=== PATIENT | female | born 1965 | race Caucasian/White ===

== ENCOUNTER 2018-07-27 00:42 | Outpatient (CLI) | payer OTHER, SELFPAY ==
--- NOTE | 2018-07-27 09:36 | DI.MAMMO_ITS ---
SYMPTOMS/DIAGNOSIS: SCREENING, Z12.31 BILATERAL SCREENING MAMMOGRAM: Mammograms were interpreted according to the usual protocol including computer analysis with CAD system, tomosynthesis and C view imaging. Comparison is made with 2013 through 2016. The breasts are composed of scattered fibroglandular densities, breast density category B. No suspicious masses or suspicious microcalcifications are seen. There has been no significant change. IMPRESSION: Category 1, negative mammogram. Yearly screening mammography is recommended. [facility] ASSESSMENT OF FINDINGS: Negative. Category 1. Patient will receive a letter notifying them of these results. BI-RADS category B. There are scattered areas of fibroglandular density.
== END 2018-07-27 01:02 ==
PROVIDERS: PCP Nurse Practitioner; Visit Provider Nurse Practitioner
DX: Z12.31 Encounter for screening mammogram for malignant neoplasm of breast (principal)
CPT/HCPCS: 77063; 77067

== ENCOUNTER 2019-02-27 16:49 | Observation (INO) | payer OTHER, SELFPAY ==
--- NOTE | 2019-02-27 16:54 | NUR.NOTE ---
Nursing Note: pt states that the world has been spiining and i feel like im going to vomit since tuesday RN notes significant nystagmus in eyes
[2019-02-27 16:57] VITALS: BP 166/79; PULSE 80; RESP 16; TEMP 36.7; O2SAT 95
--- NOTE | 2019-02-27 17:19 | W.ED.GENAD ---
Discharge Plan Disposition Patient Disposition: [facility] INPATIENT Condition: Stable Discharge Details Chief Complaint: Dizzy/Sync Clinical Impression: Vertigo, Sinusitis Admit Date/Time: 02/27/19 23:11 Admit Provider: Lalito Rodriguez Attending Provider: Lalito Rodriguez Primary Care Provider: Jessy Hathaway ED Provider: Edda Martinez Discharge Data Discharge Date/Time-TO BE ENTERED AT DEPARTURE: 02/28/19 00:47 Medical Decision Making <MEGHANN Rowland - Last Filed: 03/04/19 22:10> Patient is a 53-year-old female, accompanied by significant other, with chief complaint of headache, dizziness and sinus pain. She reports the dizziness feels like the room was spinning and began approximately 5 days ago. She reports the abrupt onset causing her to almost fall. Symptoms have been persistent since that time. She reports that over the weekend she was laying supine throughout the weekend. Has had a diminished appetite and diminished p.o. intake. Today, she began having nausea and vomiting. He denies any fevers or chills. She does have a history of migraines reports that she is never experienced this dizziness historically. She denies any visual change. No change in her hearing. Denies any neck pain. No rash. No chest pain or shortness of breath. Patient has a history of anxiety, diabetes, GERD, hypertension, hyperlipidemia, migraine, psoriasis. On exam, the patient appears uncomfortable. She is actively vomiting when I came into the room. She does appear slightly dehydrated. She is hypertensive with a blood pressure 166/79. She has no nuchal rigidity. No rash. Pupils are equal round and reactive. [place] reveals some mild nystagmus on the left. No symptoms on the right. Plan for hydration, laboratory evaluation. This patient is having a posterior headache with vertigo, will obtain CT. Horizontal nystagmus is noted on exam. Neurologic exam is otherwise intact. Exam reviewed by Dr. Beltran. Patient is in normal sinus rhythm with a rate of 81. She denies no acute ischemic changes at this time. FINDINGS: Brain: Unremarkable. No intracranial hemorrhage. Unremarkable white matter. No mass effect. Ventricles: Unremarkable. No ventriculomegaly. Bones/joints: Unremarkable. No acute fracture. Sinuses: Left maxillary sinus disease. Mastoid air cells: Visualized mastoid air cells are well aerated. Soft tissues: Unremarkable. IMPRESSION: No acute intracranial abnormality. Left maxillary sinus disease. Patient was initially treated with meclizine, ondansetron with no resolution of her symptoms. She was initially only given 12.5 by Antivert, will give another 12 5. She reports that the nausea persist will give p.o. Phenergan. Discussed the patient's CT findings with her. Advised that the acute sinusitis may be the source of her vertigo. Will begin patient on antibiotics. Labs reviewed. No leukocytosis. Patient is not anemic. Sodium was slightly low 134. Potassium is normal. Normal GFR. Calcium is low at 7.6. I am not clear as to why calcium is low. AST and ALT are also noted to be low. Troponin is normal less than 0.05. The patient's low calcium, will obtain a PTH, ionized calcium and thyroid. Patient initially feeling much improved and is discussing discharge. However, when she began trying to move the right for discharge, she began having the dizziness once again and vomiting. Very little movements are sending the patient off at this time. We will augment with benzodiazepines. Patient continues to still be symptomatic and is unable to tolerate movement. Is at this point, patient I began discussing admission his typical regimen to help with her symptoms is unsuccessful and patient continues to vomit and be vertiginous. Discussed the case with Dr. Rodriguez who agrees with admission. He came to examine the patient and placed admission orders. <Pipo Rodriguez MD - Last Filed: 03/05/19 14:40> I discussed case with MEGHANN Martinez and agree with plan as documented. HPI <MEGHANN Rowland - Last Filed: 03/04/19 22:10> General Mode of arrival: ambulatory. Date/Time Provider Initiated Documentation: 02/27/19 17:19. Limitations to Documentation: no limitations. Information obtained by: patient, family and RN notes reviewed. History of Present Illness 53 year old F presents to the emergency department with the chief complaint of dizziness, described as severe, Quality is described as aching (posterior BECKMAN), and is localized to the head. Patient started experiencing this day(s) (5) and it has been constant. Immobilization improves symptom(s), Movement worsens symptoms . Patient notes headaches, loss of appetite and nausea/vomiting; denies chest pain, cough, fever/chills, rash and shortness of breath. Patient did receive the following treatments prior to arrival, none Related Data Home Medications Medication Instructions Recorded Confirmed BD Regular Bevel [place] #300 ndl 03/31/16 03/05/19 Blood Glucose Test #300 strip 06/16/16 03/05/19 sumatriptan 5 mg NS ONCE #12 spray 12/14/16 03/05/19 Humira 40 mg SQ twice a month kit 08/30/17 03/05/19 aspirin 81 mg PO DAILY tab 09/06/17 03/05/19 acetaminophen [Tylenol] 650 mg PO 10/20/17 03/05/19 lorazepam 0.5 mg tablet 0.5 mg PO DAILY PRN #30 tab-cap 02/21/18 03/05/19 calcium carbonate-vitamin D3 1 tab PO BID #60 tab 02/28/19 03/05/19 [Calcium with Vitamin D] meclizine 25 mg PO TID PRN #30 tab 02/28/19 03/05/19 fenofibrate nanocrystallized 145 145 mg PO DAILY #90 tab-cap 03/05/19 03/05/19 mg tablet insulin aspart U-100 100 unit/mL 4 unit SUBCUT See Instructions ml 03/05/19 03/05/19 (3 mL) subcutaneous pen insulin glargine 100 unit/mL (3 54 unit SC DAILY ml 03/05/19 03/05/19 mL) subcutaneous pen lisinopril 10 mg tablet 10 mg PO DAILY #90 tab-cap 03/05/19 03/05/19 pantoprazole 40 mg tablet,delayed 40 mg PO DAILY #90 tab-cap 03/05/19 03/05/19 release pregabalin 100 mg capsule 100 mg PO TID #90 cap 03/05/19 03/05/19 rosuvastatin 40 mg tablet 40 mg PO DAILY #90 tab-cap 03/05/19 03/05/19 Previous Rx's Medication Instructions Recorded lorazepam 0.5 mg tablet 0.5 mg PO DAILY PRN #30 tab-cap 02/21/18 calcium carbonate-vitamin D3 1 tab PO BID #60 tab 02/28/19 [Calcium with Vitamin D] meclizine 25 mg PO TID PRN #30 tab 02/28/19 fenofibrate nanocrystallized 145 145 mg PO DAILY #90 tab-cap 03/05/19 mg tablet lisinopril 10 mg tablet 10 mg PO DAILY #90 tab-cap 03/05/19 pantoprazole 40 mg tablet,delayed 40 mg PO DAILY #90 tab-cap 03/05/19 release pregabalin 100 mg capsule 100 mg PO TID #90 cap 03/05/19 rosuvastatin 40 mg tablet 40 mg PO DAILY #90 tab-cap 03/05/19 Allergies Allergy/AdvReac Type Severity Reaction Status Date / Time adhesive Allergy rash Verified 03/05/19 14:02 metformin AdvReac Intermediate diarrhea Verified 03/05/19 14:02 ibuprofen [From Motrin] AdvReac GI Verified 03/05/19 14:02 Disturbances General Stated Complaint: Dizzy/Sync NASH: 4 Review of Systems <MEGHANN Rowland - Last Filed: 03/04/19 22:10> Constitutional Constitutional: Reports as per HPI, Denies chills, Reports fatigue, Denies fever(s), Denies frequent falls, Reports headache(s), Denies snoring and Denies weakness Eyes Eyes: Reports as per HPI, Denies blurry vision, Denies change in vision and Reports photophobia ENT Ears, Nose, Mouth, and Throat: Denies vertigo, Reports headache(s) and Denies neck pain Cardiovascular Cardiovascular: Reports as per HPI, Denies chest pain, Denies lightheadedness, Denies radiating jaw, neck or arm pain, Denies dyspnea and Denies dyspnea on exertion Respiratory Respiratory: Reports as per HPI, Denies chest congestion, Denies cough, Denies dyspnea, Denies dyspnea on exertion, Denies snoring, Denies stridor and Denies wheezing Gastrointestinal Gastrointestinal: Reports as per HPI, Denies abdominal pain, Denies change in bowel habits, Denies nausea and Denies vomiting Musculoskeletal Musculoskeletal: Reports as per HPI, Denies back pain, Denies myalgias, Denies muscle cramps, Denies neck pain and Denies numbness Integumentary/Breasts Skin/Breast: Reports as per HPI and Denies rash Neurologic Neurologic: Reports as per HPI, Denies abnormal movements, Denies abnormal speech, Denies behavioral changes, Denies confusion, Denies vertigo, Denies frequent falls, Reports headache(s), Denies focal weakness, Denies numbness, Denies sensory deficit and Denies weakness Psychiatric Psychiatric: Denies behavioral changes and Denies confusion Endocrine Endocrine: Reports fatigue Allergic/Immunologic Allergic/Immunologic: Denies wheezing PFSH <MEGHANN Rowland - Last Filed: 03/04/19 22:10> Medical History HLD (hyperlipidemia) Migraine T2DM (type 2 diabetes mellitus) Surgical History Cholecystectomy (10/20/17) laparoscopic left meniscal tear (~2007) Dr Squires partial hysterectomy (~2004) Dr Haro S/P shoulder surgery (Acute ~2012) [place], to correct frozen shoulder Family History Grandmother , [place] at age 60. 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 Seatbelt use: always Helmet use: No Do you feel safe at home: Yes Do you feel safe in your relationship?: Yes Exam <MEGHANN Rowland - Last Filed: 03/04/19 22:10> Const General: cooperative, healthy appearing, uncomfortable, no acute distress, well developed and well groomed Nutritional Appearance: average body habitus and well nourished Orientation: alert, awake and oriented x3 HENMT Head: normal to inspection, no palpable skull fracture, normocephalic and atraumatic Ears: hearing grossly normal bilaterally, external ears normal and TM's normal bilaterally General nose exam: external nose normal Mouth: oral mucosae normal and moist mucous membranes Throat: posterior oropharynx normal Eyes General: appearance normal, both eyes and all related structures Alignment and Position: alignment normal Periorbital: periorbital findings normal Eyelids: eyelids normal Sclera: sclerae normal Cornea: corneas normal Pupils: PERRL EOM: EOM intact bilaterally Neck Neck: normal visual inspection, full ROM, no lymphadenopathy and no meningeal signs Resp Effort & Inspection: normal respiratory effort, able to speak in complete sentences and no respiratory distress Auscultation: clear to auscultation bilaterally, no rales, no rhonchi and no wheezes Cardio Rate: regular rate Rhythm: regular rhythm Heart Sounds: S1 normal and S2 normal GI Inspection: normal to inspection and non-distended Palpation: soft, no hepatosplenomegaly, not firm, no guarding, not rigid and nontender Percussion: normal to percussion Auscultation: normal bowel sounds Back/Spine/Pelvis Cervical Spine: normal cervical lordosis and cervical ROM normal Skin General skin exam: no rashes or lesions noted Neuro General: alert, awake and oriented x3 Cranial Nerves: CN's II-XI intact bilaterally Cognition: normal cognition Speech: speech normal Gait: normal gait Motor: muscle tone normal throughout, strength 5/5 throughout, no pronator drift, no movement abnormalities noted and no fasciculations Sensory Exam: no sensory deficits noted Coordination: [id number] test normal and [id number] test normal Extrem General: normal to inspection, normal capillary refill, no pedal edema and no calf tenderness Psych Appearance: grossly normal and well kempt Mental Status: mental status grossly normal Speech and Movement: speech and movement normal Course <MEGAHNN Rowland - Last Filed: 03/04/19 22:10> Vital Signs Vital signs: Vital Signs Temperature 36.7 C 02/27/19 16:57 Pulse 80 02/27/19 16:57 Respiratory Rate 16 02/27/19 16:57 Blood Pressure 166/79 H 02/27/19 16:57 Pulse Oximetry 95 02/27/19 16:57 Temperature 36.7 C 02/27/19 16:57 Temperature Source Skin 02/27/19 16:57 Pulse 80 02/27/19 16:57 Respiratory Rate 16 02/27/19 16:57 Respiratory Effort 02/27/19 16:59 Blood Pressure 166/79 H 02/27/19 16:57 Blood Pressure Position Sitting 02/27/19 16:57 Pulse Oximetry 95 02/27/19 16:57 Oxygen Delivery Method Room Air 02/27/19 16:57 Oxygen Flow Rate 0 02/27/19 16:57
--- NOTE | 2019-02-27 17:34 | DI.CT_ITS ---
EXAM: CT HEAD WO CLINICAL HISTORY: dizzy, posterior BECKMAN. TECHNIQUE: Imaging Protocol: Axial computed tomography images with coronal and sagittal reformatted images were created and reviewed COMPARISON: No exams were available for comparison FINDINGS: Ventricles and Extra axial spaces: Normal in size and morphology for the patient's age. Hemorrhage: None. Cerebral parenchyma: Normal. Midline shift: None. Brainstem/Cerebellum: Normal. Calvarium: Normal. Visualized Paranasal sinuses/Mastoids: There is a small mucous retention cyst or polyp in the left ma xillary sinus. The remaining visualized paranasal sinuses are clear. IMPRESSION: No acute intracranial process. DATA REPOSITORY: All CT scans at this facility are submitted to the National Radiology Data Registry (NRDR) Dose Index Registry (DIR) with the [employer] (A[employer]). RADIATION OPTIMIZATION: All CT scans at this facility use at least one of these dose optimization te chniques: automated exposure control; mA and/or kV adjustment per patient size (includes targeted exa ms where dose is matched to clinical indication); or iterative reconstruction.
[2019-02-27] MEDS: LORazepam 2 MG/ML VIAL 0.5 MG IVP (17:55)
[2019-02-27] MEDS: Ondansetron 4 MG/2 ML VIAL IVP (17:55)
[2019-02-27] MEDS: Meclizine 12.5 MG TAB PO ×2 (17:55→20:14)
[2019-02-27 18:09] VITALS: RESP 16
[2019-02-27 18:19] LABS: ALT 107 U/L (14-59)
[2019-02-27 18:31] LABS: Albumin 3.9 g/dL (3.4-5.0); Anion Gap 10.6 mmol/L (3-11); Bilirubin, Total 1.4 mg/dL (0.2-1.0); CO2 22.4 mmol/L (21.0-32.0); Calcium 7.1 mg/dL (8.5-10.1); Chloride 101 mmol/L (98-107); Glucose 314 mg/dL (70-100); Magnesium 1.8 mg/dL (1.8-2.4); Potassium 4.6 mmol/L (3.5-5.1); Sodium 134 mmol/L (136-145); TSH 1.33 uIU/mL (0.36-3.74)
[2019-02-27 18:45] LABS: Troponin I < 0.05 ng/mL (0.00-0.06)
[2019-02-27 18:49] LABS: Alkaline Phosphatase 68 U/L (46-116); BUN 12 mg/dL (7-18); CREATININE 0.34 mg/dL (0.55-1.02); Total Protein 7.2 g/dL (6.4-8.2)
[2019-02-27 18:50] LABS: AST 79 U/L (15-37)
--- NOTE | 2019-02-27 19:05 | DI.VRAD_ITS ---
PROCEDURE INFORMATION: Exam: CT Head without contrast Exam date and time: 02/27/2019 6:20 PM Clinical history: 53 years old, female; Other: Dizzy, posterior BECKMAN TECHNIQUE: Imaging protocol: Computed tomography of the head without contrast. Radiation optimization: All CT scans at this facility use at least one of these dose optimization techniques: automated exposure control; mA and/or kV adjustment per patient size (includes targeted exams where dose is matched to clinical indication); or iterative reconstruction. COMPARISON: No relevant prior studies available. FINDINGS: Brain: Unremarkable. No intracranial hemorrhage. Unremarkable white matter. No mass effect. Ventricles: Unremarkable. No ventriculomegaly. Bones/joints: Unremarkable. No acute fracture. Sinuses: Left maxillary sinus disease. Mastoid air cells: Visualized mastoid air cells are well aerated. Soft tissues: Unremarkable. IMPRESSION: No acute intracranial abnormality. Left maxillary sinus disease. Dictated and Authenticated by: Inna Salazar MD. Ordering:MICHAEL Bañuelos MD
[2019-02-27 19:16] LABS: Abs Immature Grans 0.03 k/cumm (0.0-0.09); Absolute Basophil Count 0.04 k/cumm (0.0-0.2); Absolute Eosinophil Count 0.21 k/cumm (0.0-0.7); Absolute Lymphocyte Count 1.71 k/cumm (1.2-3.4); Absolute Monocyte Count 0.25 k/cumm (0.11-0.7); Absolute Neutrophil Count 3.68 k/cumm (1.2-6.7); Basophils % 0.7; Eosinophils % 3.5; HCT 38.5 % (36.0-46.0); HGB 14.1 g/dL (12.0-15.5); Immature Grans % 0.5; Lymphocytes % 28.9; Mean Corp. HGB Concentration 36.6 g/dL (32.0-36.0); Mean Corpuscular Hemoglobin 29.2 pg (27.0-33.0); Mean Corpuscular Volume 79.7 fL (80-95); Mean Platelet Volume 11.8 fL (8.0-11.0); Monocytes % 4.2; Neutrophils % 62.2; Platelet Count 183 x1000/uL (130-400); RBC 4.83 m/cumm (4.00-5.20); White Blood Cell Count 5.92 k/cumm (4.4-10.8)
[2019-02-27] MEDS: diphenhydrAMINE 50 MG/ML VIAL 25 MG IVP (19:48)
[2019-02-27] MEDS: Amoxicillin 875/Clav. 125 TAB PO (20:15)
--- NOTE | 2019-02-27 20:22 | NUR.NOTE ---
Nursing Note:Pt resting on cot with eyes closed, reports that she is feeling better with a decline in nausea. Sts that she would like to go home, accepts oral medication offered to her at this time. Will continue to monitor.
--- NOTE | 2019-02-27 22:51 | HPE_ITS ---
Assessment and Plan Assessment and plan (1) Vertigo: Status: Acute Assessment and plan: vertigo, appears to be labrynthitis. Will treat symptomatically with prn meclizinee or Ativan. I have asked her to try to remain more or less upright for the next 12-24 hours following repositioning maneuver. Other issue as follows: DM: given nausea will hold scheduled insulin and cover with SS Hepatitis: possibly drug related. Will simply track along for now, I do not feel that full work up is indicated at this point for this level Hypocalcemia: I have no explanation for this at present but appears to be incidental finding. Will recheck to confirm not lab error and otherwise supplement calcium. PTH is pending History of Present Illness History of Present Illness Chief Complaint: vertigo Narrative: 53 female reports three to four days of vertigo associated with vomiiting. Vertigo is precipitated by sudden changes in head position. No change in vision, speech, or motor or sensory changes. No headache but she has had what she describes as left sinusitis for past week and a half, meaning pressure in left cheek (has h/o recurrent sinusitis). In ER head CT negative (except for left maxillary sinus disease). patient had limited help with Meclizine, Phenrgan, Zofran, and Ativan. When I examined patient she indicated that head motion to the left seemed to be the worst and a canalith repositioning maneuver was performed on this side. No nystagmus was noted durring maneuver but patient did report feeling improved. She is admitted for further management. Note several apparently incidental findings: mild elevations in hepatic transaminases (2x normal) and calcium of 7.1. She denies parasthesias or muscle cramping. She does note Humira is only new medication, within the past year. Review of Systems Review of Systems ROS Unobtainable: All systems reviewed & are unremarkable except as noted in HPI and below PFSH Medical History HLD (hyperlipidemia) Migraine T2DM (type 2 diabetes mellitus) Surgical History Cholecystectomy (10/20/17) laparoscopic left meniscal tear (~2007) Dr Squires partial hysterectomy (~2004) Dr Haro S/P shoulder surgery (Acute ~2012) [place], to correct frozen shoulder Family History Grandmother , [place] at age 60. 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 Seatbelt use: always Helmet use: No Do you feel safe at home: Yes Do you feel safe in your relationship?: Yes Meds Home Medications and Allergies Home Medications Medication Instructions Recorded Confirmed Type BD Regular Bevel [place] #300 ndl 03/31/16 02/27/19 History Blood Glucose Test #300 strip 06/16/16 02/27/19 History sumatriptan 5 mg NS ONCE #12 spray 12/14/16 02/27/19 History Humira 40 mg SQ twice a month kit 08/30/17 02/27/19 History aspirin 81 mg PO DAILY tab 09/06/17 02/27/19 History acetaminophen [Tylenol] 650 mg PO 10/20/17 07/19/18 History rosuvastatin [Crestor] 40 mg PO DAILY #90 tab-cap 01/17/18 02/27/19 Rx insulin degludec 200 unit/mL (3 50 unit SC DAILY #9 ml 02/21/18 02/27/19 Rx mL) subcutaneous pen lorazepam 0.5 mg tablet 0.5 mg PO DAILY PRN #30 tab-cap 02/21/18 02/27/19 Rx pregabalin 100 mg capsule 100 mg PO TID #90 cap 04/19/18 02/27/19 Rx fenofibrate nanocrystallized 145 145 mg PO DAILY #90 tab-cap 07/19/18 02/27/19 Rx mg tablet insulin aspart U-100 100 unit/mL 4 unit SUBCUT See Instructions #3 07/19/18 02/27/19 Rx (3 mL) subcutaneous pen ml lisinopril 10 mg tablet 10 mg PO DAILY #90 tab-cap 07/19/18 02/27/19 Rx pantoprazole 40 mg tablet,delayed 40 mg PO DAILY #90 tab-cap 07/19/18 02/27/19 Rx release Allergies Allergy/AdvReac Type Severity Reaction Status Date / Time adhesive Allergy rash Verified 02/27/19 16:58 metformin AdvReac Intermediate diarrhea Verified 02/27/19 16:58 ibuprofen [From Motrin] AdvReac GI Verified 02/27/19 16:58 Disturbances Exam Narrative Exam Narrative: 166/79, 80, 18, 36.7. HEENT TM negative; neck ssupple; lungs clearr; heart RRR; abdomen soft NT; extremities no edema; neuro ox3; CN intact, motor 5/5, no twitching or fasciculations noted Results Labs Result diagrams: 02/27/19 17:48 02/27/19 17:48 Labs: Laboratory Results - last 24 hr 02/27/19 02/27/19 17:48 17:48 WBC 5.92 RBC 4.83 Hgb 14.1 Hct 38.5 MCV 79.7 L MCH 29.2 MCHC 36.6 H RDW 13.0 Plt Count 183 MPV 11.8 H Immature Gran % 0.5 Neutrophils % 62.2 Lymphocytes % 28.9 Monocytes % 4.2 Eosinophils % 3.5 Basophils % 0.7 Absolute Neutrophils 3.68 Absolute Lymphocytes 1.71 Absolute Monocytes 0.25 Absolute Eosinophils 0.21 Absolute Basophils 0.04 Sodium 134 L Potassium 4.6 Chloride 101 Carbon Dioxide 22.4 Anion Gap 10.6 BUN 12 Creatinine 0.34 L Estimated GFR/1.73 m2 >= 60.00 Glucose 314 H Calcium 7.1 L Magnesium 1.8 Total Bilirubin 1.4 H AST 79 H ALT 107 H Alkaline Phosphatase 68 Troponin I < 0.05 Total Protein 7.2 Albumin 3.9 TSH 1.33 Last Vital Signs Temp 36.7 C 02/27/19 16:57 Pulse 80 02/27/19 16:57 Resp 16 02/27/19 18:09 BP 166/79 H 02/27/19 16:57 Pulse Ox 95 02/27/19 16:57
[2019-02-28 01:03] VITALS: BP 127/79; PULSE 87; RESP 18; TEMP 36.4; O2SAT 96
[2019-02-28] MEDS: Lactated Ringers 1,000 ML 125 ML IV ×2 (01:28→08:59)
[2019-02-28 05:20] VITALS: BP 115/71; PULSE 84; RESP 16; TEMP 37.2; O2SAT 96
--- NOTE | 2019-02-28 05:54 | NUR.NOTE ---
Patient was admitted to the med-surg unit with history of dizziness, nausea and vomiting since Tuesday. She was seen in the emergency room given medications but symptoms continues subsequently admitted to the floor. Assessments done and charted.
[2019-02-28] MEDS: Pantoprazole 40 MG TABCR PO (08:10)
[2019-02-28] MEDS: Insulin Aspart 300 UNITS/3 ML PEN SC ×2 (08:10→11:46)
[2019-02-28] MEDS: Lisinopril 10 MG TAB PO (08:11)
[2019-02-28] MEDS: Pregabalin 100 MG CAP PO ×2 (08:11→14:59)
[2019-02-28] MEDS: Calcium Carbonate 1.5 GM TAB PO (08:11)
[2019-02-28 08:20] LABS: AST 11 U/L (15-37)
[2019-02-28 08:22] VITALS: BP 115/74; PULSE 84; RESP 16; TEMP 36.7; O2SAT 96
[2019-02-28 08:24] LABS: ALT < 5 U/L (14-59)
[2019-02-28 08:26] LABS: Calcium 7.6 mg/dL (8.5-10.1)
[2019-02-28] MEDS: Amoxicillin 875/Clav. 125 TAB PO (08:57)
[2019-02-28] MEDS: Meclizine 25 MG TAB PO (10:05)
[2019-02-28] MEDS: Acetaminophen 325 MG TAB 650 MG PO (11:44)
--- NOTE | 2019-02-28 12:00 | IN_ITS ---
Date of service: 02/28/19 Time of Service: 11:09 PT Notes Inpatient Physical Therapy Evaluation Date: 02/28/2019 Referring Doctor: Mario Clifford MD PT Orders: PT CONSULT: Vertigo Precautions: Fall. Standard. Activity as tolerated. Patient Profile/Admitting Diagnosis: 53-year-old female who presented to the ED on 02/27/2019 with chief complaints of headache, dizziness, sinus pain. Patient was d with vertigo related to labyrinthitis, drug-related hepatitis, and hypocalcemia. PMHX: Medical History HLD (hyperlipidemia) Migraine T2DM (type 2 diabetes mellitus) Surgical History Cholecystectomy (10/20/17) Patient was diagnosed with vertigo laparoscopic Left meniscal tear (~2007) by Dr Squires Partial hysterectomy (~2004) by Dr Haro S/P shoulder surgery (Acute ~2012) in [place], to correct frozen shoulder Social History/Home Situation: Patient lives with . She reports no falls for the past 12 months. She is independent with all aspects of ADLs without the need for an assistive ambulatory device nor adaptive equipment. She further reports that she has had dizziness with a sensation of the room spinning that started to happen about 5 days before admission to this hospital. Equipment Owned/DME: None Subjective: Patient is agreeable to a PT consult and treatment today. She reports that she was unable to tolerate short distance ambulation when she came to the ED for the previous day. This morning she states that her symptoms seem to be a little better than yesterday. She states she has taken two Meclizine pillls yesterday and one this morning. Objective: General Observation: Patient is resting in bed upon arrival of PT and student PT. IV in left UE. Did not appear to have some unilateral hearing loss throughout PT session. Mental Status: Alert and oriented x4 Pain: 0/10 ROM: Right Upper Extremity: Shoulder Flexion WFL. Shoulder abduction WFL. Elbow flexion WFL. Wrist flexion WFL. Functional opening and closing of hand WFL. Left Upper Extremity: Shoulder Flexion WFL. Shoulder abduction WFL. Elbow flexion WFL. Wrist flexion WFL. Functional opening and closing of hand WFL. Right Lower Extremity: Hip flexion WFL. Hip abduction WFL. Knee flexion WFL. Ankle dorsiflexion WFL. Ankle plantarflexion WFL. Left Lower Extremity: Hip flexion WFL. Hip abduction WFL. Knee flexion WFL. Ankle dorsiflexion WFL. Ankle plantarflexion WFL. Strength: Grossly 5/5 Bed Mobility/Transfers: Rolling independent Supine to sit independent Sit to supine independent Sit to stand CGA Stand to sit CGA Bed to chair CGA Chair to bed CGA Gait: Patient tolerated 30 feet of level surface ambulation using no assistive device with CGA without report of significant dizziness and of room spinning throughout activity. Patient did demonstrate a significantly reduced gait speed with bilateral upper extremity in low guard. Balance: Static Sitting: Good Dynamic Sitting: Good Static Standing: Fair Dynamic Standing: Fair Special Tests: Mobility Limitations Standardized Measure [facility] 6 clicks Basic Mobility Inpatient Short Form: Raw Score: CMS Score: VERTIGO TESTING: Oculomotor Examination: Negative for spontaneous nystagmus but presented with L beating nystagmus with L gaze. near-point convergence at 16.5 cm. Cervical Spine Examination: Sharp-Mychal Test and Alar Ligament Test both negative. Vertebral Artery Test produced L upbeating torsional nystagmus. Head Thrust Test: VOR positive on L side. [place]-Hallpike Test: Produced L upbeating/torsional nystagmus. Supine Head Roll Test: produced geotropic nystagmus on the L side. Informed Consent/Education: Patient instructed in purpose of PT consult and plan of care. Assessment: Patient presented with L upbeating torsional nystagmus with the [place]-Hallpike Maneuver as well as unilateral geotropic horizontal nystagmus with supine head roll test. Treatment for today consisted of Dontae Maneuver to correct L posterior canal BPPV symptoms. Manuever was done 3x with patient's symptoms diminishing the most after the third maneuver. Patient was able to tolerate 30 feet of level surface ambulation after treatment without the need for assistive ambulatory device. Patient presents with clinical signs and symptoms consistent with current/admitting diagnoses that have resulted to mobility limitations, gait instability, generalized weakness, and impairment of motor control as demonstrated by the following impairment level findings: 1. Impaired sitting/standing balance 2. Impaired activity tolerance Impairments are contributing to the following functional limitations: 1. Increase completion time for mobility ADL performance 2. Increased fall risk Patient is assessed as a 62414 moderate complexity based on the following: History: Patient was d with vertigo related to labyrinthitis, drug-related hepatitis, and hypocalcemia. Examination:Demonstrable impairment in balance with underlying impairments and functional limitations as documented above Presentation:Evolving Decision Makin moderate complexity Goals: Goals X 3 days 1. Sit-Stand independent 2. Stand-Sit independent 3. Bed-Chair independent 4. Chair-Bed independent 5. Independent gait on level surface without the use of an assistive device for at least 300 feet without report of pain nor dyspnea 6. Independent with home exercise program 7. Good static and dynamic standing balance/tolerance Plan of Care/Treatment Plan: 1-2x/day, 7 days/week x 1 week. Plan of care has been reviewed with the EMOTIONALLY IMPAIRED TEACHER providing the service under Physical Therapy direction. Initiate Physical Therapy intervention for strengthening, bed mobility, transfers, gait, stairs, balance training, use of assistive device. DISCHARGE RECOMMENDATIONS: Patient will benefit from continued performance of Dontae Maneuver to minimize dizziness symptoms, facilitate independent participation with mobility ADLs, and reduce fall risk at home. TREATMENT CODE/TIME: 89017 x 30 minutes, 37300 x 22 minutes beginning at 10:43 AM.
--- NOTE | 2019-02-28 15:18 | W.PM.DS.N ---
Date of service: 02/28/19 Time of Service: 15:18 DS: Diagnosis Discharge Diagnosis (1) Vertigo: Status: Acute Discharge Plan Disposition Patient Disposition: HOME Condition: Stable Discharge Details Chief Complaint: Dizzy/Sync Reason For Visit: VERTIGO Admit Date/Time: 02/27/19 23:11 Admit Provider: Lalito Rodriguez Attending Provider: Lalito Rodriguez Primary Care Provider: Jessy Hathaway ED Provider: Edda Martinez [facility] Course Hospital Course: Chief Complaint: Vertigo HPI: Pleasant 53 year old woman with a past medical history significant for recurrent sinus infections, Psoriasis, GERD, prior H. Pylori infection, and HTN, admitted from [facility] Emergency Department on 02/27 with a diagnosis of Vertigo. Patient presents to the ED with reports of vertigo, feeling like the room was spinning, occuring over the course of 5 days. Her symptoms were significant enough to cause near falls, nausea, and vomiting. Work-up was noteworthy for an essentially normal CBC, minimal hyponatremia, normal renal function, hyperglycemia with a glucose of 314, Elevated LFTs that normalized by the next morning, and undetectable troponin. TSH was also checked and normal. CT Head was also checked and without any acute intracranial pathology. [place]-Hallpike did reproduce symptoms and a slight nystagmus. Of note, patient's calcium and corrected calcium were low in the 7's range. Following admission the patient's nausea was controlled, and she underwent further evaluation via Physical Therapy, showing a nystagmus with a repeat [place]-Hallpike maneuver, and improvement in symptoms following The Dontae Maneuver. She was also found to be safe with ambulation, tolerating 30 feet of surface ambulation without assistance. She is being discharged with a diagnosis of potential BPPV, with instructions for repeat stone repositioning maneuvers at home and additional meclizine if needed. Patient was also noted to have mild hypocalcemia - she appears asymptomatic, without any complaint of paresthesias, no evidence of QT prolongation, hypotension, mental status changes or any overt neurological symptoms other than the previously stated VertigoAs the patient's corrected calcium was > 7.5 treatment was not sought. However, etiology needs to be further evaluated - Intact PTH and Ionized Calcium were obtained and results pending at this time. She will be initiated on calcium/vitamin d supplementation. Follow-up with PCP was obtained over the next week to follow-up on both her calcium levels and symptoms of vertigo. Home Meds and New Rx's Prescriptions: New calcium carbonate-vitamin D3 [Calcium with Vitamin D] 600 mg(1,500mg) -400 unit tablet 1 tab PO BID Qty: 60 RF: 0 meclizine 25 mg tablet 25 mg PO TID PRN (Reason: dizziness) Qty: 30 RF: 0 Continued Tresiba FlexTouch U-200 200 unit/mL (3 mL) insulin pen 50 unit SC DAILY Qty: 9 RF: 3 lorazepam [Ativan] 0.5 mg tablet 0.5 mg PO DAILY PRN (Reason: anxiety) Qty: 30 RF: 2 pregabalin [Lyrica] 100 mg capsule 100 mg PO TID Qty: 90 RF: 2 fenofibrate nanocrystallized [Tricor] 145 mg tablet 145 mg PO DAILY Qty: 90 RF: 3 lisinopril 10 mg tablet 10 mg PO DAILY Qty: 90 RF: 3 pantoprazole 40 mg tablet,delayed release (DR/EC) 40 mg PO DAILY Qty: 90 RF: 3 Novolog Flexpen U-100 Insulin 100 unit/mL insulin pen 4 unit subcut See Instructions Qty: 3 RF: 3 (DME) BD Regular [place]vel [place] 1 EACH needle 1 ea Miscellaneous AC & HS Qty: 300 RF: 2 (DME) Blood Glucose Test 1 EACH strip 1 ea Miscellaneous AC & HS Qty: 300 RF: 2 sumatriptan 5 MG spray,non-aerosol 5 mg NS ONCE Qty: 12 RF: 1 Humira 40 MG/0.8 ML kit 40 mg SQ twice a month RF: 0 aspirin 81 MG tablet,delayed release (DR/EC) 81 mg PO DAILY RF: 0 rosuvastatin [Crestor] 40 MG tablet 40 mg PO DAILY Qty: 90 RF: 3 acetaminophen [Tylenol] 325 MG tablet 650 mg PO RF: 0 Discharge Instructions Referrals: Jessy Hathaway NP [Primary Care Provider] - 03/05/19 2:00 pm Activity:: No Strenuous Activity Equipment/Supplies:: No Equipment Needed Diet:: Carb Counting Discharge Orders Discharge Orders: Discharge Order (Routine); Ordered 02/28/19 Ordered By: Mario Clifford DS: Summary Status at Discharge Functional status at discharge: independent ambulation Overall status at discharge: patient is back to baseline Mental Status: mental status grossly normal Speech and Movement: speech and movement normal Mood: congruent mood Affect: normal affect Exam Psych Mental Status: mental status grossly normal Speech and Movement: speech and movement normal Mood: congruent mood Affect: normal affect DS: Data Vitals/I&O Vitals and I&O: Vital Signs Temperature 36.7 C 02/28/19 08:22 Temperature Source Tympanic 02/28/19 08:22 Pulse 84 02/28/19 08:22 Pulse Rhythm Regular 02/28/19 01:03 Respiratory Rate 16 02/28/19 08:22 Respiratory Effort Non-Labored 02/28/19 01:03 Respiratory Depth Normal 02/28/19 01:03 Respiratory Pattern Normal 02/28/19 01:03 Blood Pressure 115/74 02/28/19 08:22 Blood Pressure Position Sitting 02/27/19 16:57 Pulse Oximetry 96 02/28/19 08:22 Oxygen Delivery Method Room Air 02/28/19 08:22 Oxygen Flow Rate 0 02/28/19 08:22 Pain Level 0 02/28/19 08:22 Intake & Output 02/27/19 02/28/19 02/28/19 23:59 11:59 23:59 Intake Total 939.583 / 939.583 Output Total 500 / 500 Balance 439.583 / 439.583 Weight 61.235 kg 61.235 kg Intake: IV 939.583 / 939.583 Output: Urine 500 / 500 Other: Urine Color Pale Yellow Urine Appearance Clear Urine Odor None Voiding Methods Toilet Data Completed and Pending Completed studies during hospitalization [Text1]: Exam(s) a CT:CT head wo EXAM: CT HEAD WO CLINICAL HISTORY: dizzy, posterior BECKMAN. TECHNIQUE: Imaging Protocol: Axial computed tomography images with coronal and sagittal reformatted images were created and reviewed COMPARISON: No exams were available for comparison FINDINGS: Ventricles and Extra axial spaces: Normal in size and morphology for the patient's age. Hemorrhage: None. Cerebral parenchyma: Normal. Midline shift: None. Brainstem/Cerebellum: Normal. Calvarium: Normal. Visualized Paranasal sinuses/Mastoids: There is a small mucous retention cyst or polyp in the left maxillary sinus. The remaining visualized paranasal sinuses are clear. IMPRESSION: No acute intracranial process. Labs on day of discharge: Labs from last 24 hours 02/28/19 02/27/19 02/27/19 06:55 19:33 19:33 WBC RBC Hgb Hct MCV MCH MCHC RDW Plt Count MPV Immature Gran % Neutrophils % Lymphocytes % Monocytes % Eosinophils % Basophils % Absolute Neutrophils Absolute Lymphocytes Absolute Monocytes Absolute Eosinophils Absolute Basophils Sodium Potassium Chloride Carbon Dioxide Anion Gap BUN Creatinine Estimated GFR/1.73 m2 Glucose Calcium 7.6 L Ionized Calcium Pending Magnesium Total Bilirubin AST 11 L ALT < 5 L Alkaline Phosphatase Troponin I Total Protein Albumin TSH PTH Intact Pending 02/27/19 02/27/19 02/27/19 17:48 17:48 17:46 WBC 5.92 RBC 4.83 Hgb 14.1 Hct 38.5 MCV 79.7 L MCH 29.2 MCHC 36.6 H RDW 13.0 Plt Count 183 MPV 11.8 H Immature Gran % 0.5 Neutrophils % 62.2 Lymphocytes % 28.9 Monocytes % 4.2 Eosinophils % 3.5 Basophils % 0.7 Absolute Neutrophils 3.68 Absolute Lymphocytes 1.71 Absolute Monocytes 0.25 Absolute Eosinophils 0.21 Absolute Basophils 0.04 Sodium 134 L Potassium 4.6 Chloride 101 Carbon Dioxide 22.4 Anion Gap 10.6 BUN 12 Creatinine 0.34 L Estimated GFR/1.73 m2 >= 60.00 Glucose 314 H Calcium 7.1 L 7.0 L Ionized Calcium Magnesium 1.8 Total Bilirubin 1.4 H AST 79 H ALT 107 H Alkaline Phosphatase 68 Troponin I < 0.05 Total Protein 7.2 Albumin 3.9 TSH 1.33 PTH Intact PFS Medical History HLD (hyperlipidemia) Migraine T2DM (type 2 diabetes mellitus) Surgical History Cholecystectomy (10/20/17) laparoscopic left meniscal tear (~2007) Dr Squires partial hysterectomy (~2004) Dr Haro S/P shoulder surgery (Acute ~2012) [place] to correct frozen shoulder Family History Grandmother , [place] at age 60. 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 Seatbelt use: always Helmet use: No Do you feel safe at home: Yes Do you feel safe in your relationship?: Yes
--- NOTE | 2019-02-28 15:57 | PDOC.CMIN ---
- If Service Date Differs Date of service: 02/28/19 Time of Service: 15:57 Care Management Initial Assess REASON FOR HOSPITALIZATION:: Vertigo PAST MEDICAL HISTORY/PAST SURGICAL HISTORY:: Medical History. HLD (hyperlipidemia). Migraine. T2DM (type 2 diabetes mellitus). Surgical History. Cholecystectomy (10/20/17). laparoscopic. left meniscal tear (~2007). Dr Squires. partial hysterectomy (~2004). Dr Haro. S/P shoulder surgery (Acute ~2012). [place], to correct frozen shoulder PREVIOUS FUNCTIONAL STATUS/SOCIAL/FAMILY SUPPORTS:: Mily lives at home in [facility] with her and handicapped daughter. 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 She is very independent at baseline. CURRENT FUNCTIONAL STATUS:: iMly was lying in bed during the conversation with CM. She was pleasant and forthcoming. She stated that she is very busy with multiple jobs, including caring for her handicapped daughter at home. 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 She reported that she has seen the provider who told her that she would be going home today, which she is happy about. CM will continue to follow. ADVANCE DIRECTIVES:: None on file. Has patient been provided with information about the portal?: Yes Did the patient sign up for the portal?: Yes (already signed up) CODE STATUS:: Full Code INSURANCE COVERAGE / FINANCIAL ISSUES:: GEENA CURRENT HOME/COMMUNITY SERVICES/EQUIPMENT:: Mily doesn't have any current services or equipment. PRIMARY CARE PHYSICIAN:: Jessy Hathaway POTENTIAL DISCHARGE NEEDS:: Evaluations for further needs, follow up appointments. PATIENT/FAMILY EDUCATION NEEDS:: Review of community based supports, discharge plan, discussion of self care needs including Ask Me Three ANTICIPATED BARRIERS TO DISCHARGE:: None identified at this time. TRANSPORTATION:: Mily's , Usman, will drive her home via private vehicle. PLAN:: Anticipate Mily will return home with no additional services when medically cleared. Her , Usman, will drive her home via private. Follow up appointment with PCP. CM will continue to follow.
--- NOTE | 2019-02-28 16:06 | PDOC.CMDIS ---
- If Service Date Differs Date of service: 02/28/19 Time of Service: 16:06 LACE Index Scoring Tool - Questions: Length of Stay (in days): 2 Acuity (Admit via E.D.?): Yes Comorbidities: Diabetes w/o Complication E.D. Visits: 1 - Answers: Total Score: 7 Risk of Readmission: Low Risk Care Management Discharge Reason for Hospitalization: Vertigo Discharge Plan: Mily will return home with no additional services. Her , Usman, will drive her home via private vehicle. Follow up appointment with PCP. Patient/Family Education Needs: Review discharge instructions, discussion of self care needs including Ask Me Three
[2019-02-28 16:13] VITALS: BP 114/71; PULSE 84; RESP 18; TEMP 36.8; O2SAT 96
[2019-03-01 10:38] LABS: Parathyroid Hormone,Intact 22 pg/ml (19-88)
--- NOTE | 2019-03-01 13:28 | INDS_ITS ---
Date of service: 03/01/19 Time of Service: 14:42 PT Notes Inpatient Physical Therapy Discharge Summary Dates: 03/01/2019 Dates of Service: 02/28/2019 only Referring Doctor: Mario Clifford MD PT Orders: PT CONSULT: Vertigo Precautions: Fall. Standard. Activity as tolerated. Patient Profile/Admitting Diagnosis: 53-year-old female who presented to the ED on 02/27/2019 with chief complaints of headache, dizziness, sinus pain. Patient was d with vertigo related to labyrinthitis, drug-related hepatitis, and hypocalcemia. PMHX: Medical History HLD (hyperlipidemia) Migraine T2DM (type 2 diabetes mellitus) Surgical History Cholecystectomy (10/20/17) Patient was diagnosed with vertigo laparoscopic Left meniscal tear (~2007) by Dr Squires Partial hysterectomy (~2004) by Dr Haro S/P shoulder surgery (Acute ~2012) in [place], to correct frozen shoulder Social History/Home Situation: Patient lives with . She reports no falls for the past 12 months. She is independent with all aspects of ADLs without the need for an assistive ambulatory device nor adaptive equipment. She further reports that she has had dizziness with a sensation of the room spinning that started to happen about 5 days before admission to this hospital. Equipment Owned/DME: None Subjective: Patient looks forward to going home this afternoon and verbalizes that she will be able to manage continuing with GUEST SERVICES AGENT exercises at home to minimize dizziness symptoms. Objective: General Observation: Patient is resting in bed upon arrival of PT. IV in left UE. Mental Status: Alert and oriented x4 Pain: 0/10 ROM: Right Upper Extremity: Shoulder Flexion WFL. Shoulder abduction WFL. Elbow flexion WFL. Wrist flexion WFL. Functional opening and closing of hand WFL. Left Upper Extremity: Shoulder Flexion WFL. Shoulder abduction WFL. Elbow flexion WFL. Wrist flexion WFL. Functional opening and closing of hand WFL. Right Lower Extremity: Hip flexion WFL. Hip abduction WFL. Knee flexion WFL. Ankle dorsiflexion WFL. Ankle plantarflexion WFL. Left Lower Extremity: Hip flexion WFL. Hip abduction WFL. Knee flexion WFL. Ankle dorsiflexion WFL. Ankle plantarflexion WFL. Strength: Grossly 5/5 on B UE/LE is Bed Mobility/Transfers: Rolling independent Supine to sit independent Sit to supine independent Sit to stand CGA Stand to sit CGA Bed to chair CGA Chair to bed CGA Gait: Patient tolerated 30 feet of level surface ambulation using no assistive device with CGA without report of significant dizziness and of room spinning throughout activity. Patient did demonstrate a significantly reduced gait speed with bilateral upper extremity in low guard. Balance: Static Sitting: Good Dynamic Sitting: Good Static Standing: Fair Dynamic Standing: Fair Special Tests: Mobility Limitations Standardized Measure [facility] 6 clicks Basic Mobility Inpatient Short Form: Raw Score: 23 CMS Score: 11% deficit Assessment: Patient presented with L upbeating torsional nystagmus with the [place]-Hallpike Maneuver as well as unilateral geotropic horizontal nystagmus with supine head roll test. Treatment for today consisted of Dontae Maneuver to correct L posterior canal BPPV symptoms. Manuever was done 3x with patient's symptoms diminishing the most after the third maneuver. Patient was able to tolerate 30 feet of level surface ambulation after treatment without the need for assistive ambulatory device. Patient presents with clinical signs and symptoms consistent with current/admitting diagnoses that have resulted to mobility limitations, gait instability, generalized weakness, and impairment of motor control as demonstrated by the following impairment level findings: 1. Impaired sitting/standing balance 2. Impaired activity tolerance Impairments are contributing to the following functional limitations: 1. Increase completion time for mobility ADL performance 2. Increased fall risk Goals: Goals X 3 days 1. Sit-Stand independent NOT MET 2. Stand-Sit independent NOT MET 3. Bed-Chair independent NOT MET 4. Chair-Bed independent NOT MET 5. Independent gait on level surface without the use of an assistive device for at least 300 feet without report of pain nor dyspnea NOT MET 6. Independent with home exercise program NOT MET 7. Good static and dynamic standing balance/tolerance NOT MET DISCHARGE RECOMMENDATIONS: Patient will benefit from continued performance of Dontae Maneuver to minimize dizziness symptoms, facilitate independent participation with mobility ADLs, and reduce fall risk at home. TREATMENT CODE/TIME: 02571 x 15 minutes beginning at 13:32 PM.
== END 2019-02-28 16:44 | disposition home or self-care (01) ==
LOC: ER 23:46 → MS 02-28 00:49
PROVIDERS: Admitting Provider General Practice; Emergency Provider Physician Assistant; PCP Nurse Practitioner; Visit Provider Internal Medicine
DX: R42 Dizziness and giddiness (principal); E83.51 Hypocalcemia; Z23 Encounter for immunization; E78.5 Hyperlipidemia, unspecified; E11.9 Type 2 diabetes mellitus without complications; Z79.4 Long term (current) use of insulin
CPT/HCPCS: 36415; 80053; 97162; 97530; 99217; 99222; 99285; 70450; 82310; 82330; 83735; 83970; 84443; 84450; 84460; 84484; 85025; 99218; 99284; G0378; J1200; J2060; J2405

== ENCOUNTER 2019-03-06 09:09 | Outpatient (CLI) | payer OTHER, SELFPAY ==
[2019-03-06 11:00] LABS: Alkaline Phosphatase 59 U/L (46-116); Anion Gap 7.5 mmol/L (3-11); CO2 28.5 mmol/L (21.0-32.0); Chloride 97 mmol/L (98-107); Cholesterol 182 mg/dL (50-200); Potassium 4.2 mmol/L (3.5-5.1); Sodium 133 mmol/L (136-145)
[2019-03-06 14:18] LABS: BUN 16 mg/dL (7-18); CREATININE 0.61 mg/dL (0.55-1.02); Calcium 8.9 mg/dL (8.5-10.1)
[2019-03-06 14:20] LABS: Albumin 4.1 g/dL (3.4-5.0); HDL Cholesterol > 300 mg/dL (40-60); Triglyceride 2549 mg/dL (30-150)
[2019-03-06 14:21] LABS: ALT 20 U/L (14-59); AST 16 U/L (15-37)
[2019-03-06 14:22] LABS: Glucose 267 mg/dL (70-100)
== END 2019-03-06 09:29 ==
PROVIDERS: PCP Nurse Practitioner; Visit Provider Nurse Practitioner
DX: E11.42 Type 2 diabetes mellitus with diabetic polyneuropathy (principal); Z79.4 Long term (current) use of insulin; E78.1 Pure hyperglyceridemia; I10 Essential (primary) hypertension
CPT/HCPCS: 36415; 80053; 80061; 83721

== ENCOUNTER 2019-04-03 01:28 | Outpatient (CLI) | payer OTHER, SELFPAY ==
--- NOTE | 2019-04-03 14:55 | DI.CT_ITS ---
EXAM: CT SINUS WO CLINICAL HISTORY: CHRONIC MAXILLARY SINUSITIS, J32.0 TECHNIQUE: Noncontrast [employer] protocol. COMPARISON: CT HEAD WO from 02/27/2019 FINDINGS: There is circumferential mucosal thickening of the left maxillary sinus, worsening when compared with the previous head CT. Left ostiomeatal complex appears occluded. There is minimal mucosal thickeni ng at the floor of the right maxillary sinus. The ethmoid and sphenoid sinuses are unremarkable. The re is no bony erosion or abnormal sinus expansion. The orbits are unremarkable. The nasal septum is midline. The nasal cavity is clear. The mastoid air cells appear clear. IMPRESSION: Moderate to severe chronic left maxillary sinusitis, worsening when compared with February,.
== END 2019-04-03 01:48 ==
PROVIDERS: PCP Nurse Practitioner; Visit Provider Otolaryngology Otolaryngology/Facial Plastic Surgery
DX: J32.0 Chronic maxillary sinusitis (principal)
CPT/HCPCS: 70486

== ENCOUNTER 2019-10-04 10:35 | Outpatient (REF) | payer MEDICAID, SELFPAY | END 2019-10-04 10:55 | LOC: LBN 10:35 | PROVIDERS: PCP Nurse Practitioner; Visit Provider Nurse Practitioner | DX: R19.7 Diarrhea, unspecified (principal); R10.9 Unspecified abdominal pain | CPT/HCPCS: 87324 ==

== ENCOUNTER 2019-10-11 00:54 | Outpatient (CLI) | payer MEDICAID, SELFPAY ==
--- NOTE | 2019-10-11 06:45 | DI.CT_ITS ---
EXAM: CT ABDOMEN PELVIS W INDICATION: Abdominal pain,BLOATING,R10.9,R14.0,GAS,R19.8,. COMPARISON: No exams were available for comparison TECHNIQUE: FINDINGS: CT examination of the abdomen and pelvis was performed with a bolus infusion of 90 cc of Omnipaque 35 0. Images obtained through the lung bases are unremarkable. Liver, spleen and pancreas appear normal. Gallbladder has been surgically removed, no evidence of biliary dilatation. Adrenals and kidneys are unremarkable. Urinary bladder essentially empty. Abdominal aorta is of normal diameter and no major vascular abnormality is seen. No abdominal wall hernia. No abdominal or pelvic adenopathy. Automatic Beading Lathe Operator structures not visualized with certainty, please correlate regarding any surgical history. Vascu lar clips are noted in the right adnexal region. Appendix is normal. No evidence of diverticulitis or bowel obstruction. IMPRESSION: Negative examination of the abdomen and pelvis. RADIATION DOSE DELIVERED: Total DLP
[2019-10-11] MEDS: Breeza Beverage 473 ML BTL PO ×2 (07:58→07:59)
[2019-10-11] MEDS: Omnipaque 350 MG/ML 50 ML BTL PO (07:59)
[2019-10-11 08:58] LABS: CREATININE 0.88 mg/dL (0.55-1.02)
[2019-10-11] MEDS: Omnipaque 350 MG/ML 100 ML BTL IJ (09:42)
[2019-10-11] MEDS: Normal Saline - Diluent 50 ML VIAL IV (09:43)
== END 2019-10-11 01:14 ==
PROVIDERS: PCP Nurse Practitioner; Visit Provider Nurse Practitioner
DX: R10.9 Unspecified abdominal pain (principal); R14.0 Abdominal distension (gaseous)
CPT/HCPCS: 74177; 82565; J3490; Q9967

== ENCOUNTER 2019-10-24 13:33 | Outpatient (CLI) | payer MEDICAID, SELFPAY ==
--- NOTE | 2019-10-24 13:15 | DI.RAD_ITS ---
EXAM: XR SHOULDER RT COMPLETE 2+V CLINICAL HISTORY: RIGHT SHOULDER PAIN. TECHNIQUE: 2D digital imaging was performed. COMPARISON: CR LEFT SHOULDER COMPLETE from 03/31/2013 FINDINGS: BONES: No acute fracture is present. No bony destructive lesion is seen. There is deformity of the di stal clavicle which could be related to a remote fracture. There is minimal spurring at the AC joint and undersurface of the acromion. There is spurring at the lesser tuberosity and margin of the murray oid. JOINTS: No dislocation present. The glenohumeral joint space is well maintained. SOFT TISSUE: Normal. IMPRESSION: Jpfn-ae-qptempho degenerative changes.. DATA REPOSITORY: RADIATION DOSE DELIVERED:
== END 2019-10-24 13:53 ==
PROVIDERS: PCP Nurse Practitioner; Referring Provider Nurse Practitioner; Visit Provider Student in an Organized Health Care Education/Training Program
DX: M25.511 Pain in right shoulder (principal); M19.011 Primary osteoarthritis, right shoulder
CPT/HCPCS: 73030

== ENCOUNTER 2020-06-27 15:14 | Outpatient (REF) | payer MEDICAID, SELFPAY ==
[2020-06-28 12:39] LABS: COVID-19 RT-PCR UVMMC Result Negative (Negative)
== END 2020-06-27 15:34 ==
LOC: LBN 15:14
PROVIDERS: PCP Nurse Practitioner; Visit Provider Student in an Organized Health Care Education/Training Program
DX: Z11.52 Encounter for screening for COVID-19 (principal)
CPT/HCPCS: U0003

== ENCOUNTER 2020-08-21 17:05 | Outpatient (REF) | payer MEDICAID, SELFPAY ==
[2020-08-23 13:19] LABS: COVID-19 RT-PCR UVMMC Result Negative (Negative)
== END 2020-08-21 17:06 | disposition home or self-care (01) ==
LOC: LBN 17:05
PROVIDERS: PCP Nurse Practitioner Family; Visit Provider Nurse Practitioner Family
DX: Z20.822 Contact with and (suspected) exposure to COVID-19 (principal)
CPT/HCPCS: U0003

== ENCOUNTER 2020-10-01 04:41 | Outpatient (CLI) | payer MEDICAID, SELFPAY ==
[2020-10-01 08:48] LABS: HCT 39.8 % (36.0-46.0); HGB 14.9 g/dL (11.2-15.7); MCH 31.2 pg (27.0-33.0); MCHC 37.4 % (32.0-36.0); MCV 83.3 fL (80-95); MPV 10.4 fL (8.0-11.0); Platelet Count 228 10^3/uL (130-400); RBC 4.78 10^6/uL (3.93-5.22); RDW 11.9 % (11.7-14.6); RDW-SD 36.2 fL; WBC 7.99 10^3/uL (4.4-10.8)
[2020-10-01 09:38] LABS: Albumin 4.2 g/dL (3.4-5.0); Alkaline Phosphatase 58 U/L (46-116); BUN 15 mg/dL (7-18); Bilirubin, Total 0.8 mg/dL (0.2-1.0); CREATININE 0.7 mg/dL (0.55-1.02); Calcium 8.5 mg/dL (8.5-10.1); Chloride 101 mmol/L (98-107); Glucose 226 mg/dL (74-106); Potassium 4.6 mmol/L (3.5-5.1); Sodium 138 mmol/L (136-145); Total Protein 7.2 g/dL (6.4-8.2)
[2020-10-01 10:00] LABS: Cholesterol 152 mg/dL (<200); HDL Cholesterol 18 mg/dL (40-60)
[2020-10-01 10:22] LABS: ALT 29 U/L (14-59)
[2020-10-01 10:26] LABS: COMMENT (LAB VIEW ONLY) 137.07 mg/dL; Microalb ug/mg Crea 7.1 ug/mg Cr
[2020-10-01 10:48] LABS: AST 24 U/L (15-37)
[2020-10-01 10:53] LABS: Triglyceride 1467 mg/dL (<150)
[2020-10-01 11:47] LABS: LDL CHOLESTEROL 32 mg/dL (<100)
== END 2020-10-01 04:42 | disposition home or self-care (01) ==
LOC: LBO 04:42
PROVIDERS: Nurse Practitioner Family; PCP Nurse Practitioner Family; Visit Provider Nurse Practitioner
DX: E11.42 Type 2 diabetes mellitus with diabetic polyneuropathy (principal); Z79.4 Long term (current) use of insulin; E78.5 Hyperlipidemia, unspecified
CPT/HCPCS: 36415; 80053; 80061; 83721; 85027; 82043; 82570

== ENCOUNTER 2020-10-21 02:29 | Outpatient (CLI) | payer MEDICAID, SELFPAY ==
--- NOTE | 2020-10-21 08:57 | DI.MAMMO_ITS ---
Exam(s) MAMMO SCREENING EXAM: MAMMO SCREENING CLINICAL HISTORY: screening,Z12.39 TECHNIQUE: Mammograms were interpreted according to the usual protocol including computer analysis w [employer] CAD system, tomosynthesis and C-view imaging. COMPARISON: 2012 through 2018 FINDINGS: The breasts are composed of scattered fibroglandular densities, Breast Density category B. No suspicious masses or suspicious microcalcifications are seen. No skin thickening or abnormal axillary lymph nodes are seen. There has been no significant change from prior exams. IMPRESSION: BI-RADS Category 1, Negative mammogram Yearly screening mammography is recommended. Breast Density - Category B, scattered fibroglandular densities. A negative radiographic report should not delay biopsy if a dominant or clinically suspicious mass is present. Up to ten percent of cancers are not identified on mammography. A negative report may reinforce clinical impression. Adenosis and dense breasts may obscure an underlying neoplasm. False positive reports average 6 to 10%. Patient will receive a letter notifying them of these results.
== END 2020-10-21 02:49 ==
PROVIDERS: PCP Nurse Practitioner; Visit Provider Nurse Practitioner
DX: Z12.31 Encounter for screening mammogram for malignant neoplasm of breast (principal)
CPT/HCPCS: 77063; 77067

== ENCOUNTER 2020-11-21 02:32 | Outpatient (CLI) | payer MEDICAID, SELFPAY ==
[2020-11-21 09:14] LABS: ESR < 1 mm/hr (0-30)
[2020-11-21 10:03] LABS: C-Reactive Protein 0.09 mg/dL (0.0-0.3)
[2020-11-21 16:57] LABS: Rheumatoid Factor <8.6 IU/mL (<12.0)
[2020-11-24 14:28] LABS: ANA Interpretation Negative (Negative)
== END 2020-11-21 02:33 | disposition home or self-care (01) ==
LOC: LBO 02:32
PROVIDERS: Nurse Practitioner Family; PCP Nurse Practitioner; Visit Provider Nurse Practitioner
DX: E11.65 Type 2 diabetes mellitus with hyperglycemia (principal); Z79.4 Long term (current) use of insulin
CPT/HCPCS: 36415; 85652; 83036; 86038; 86140; 86431

== ENCOUNTER 2021-02-11 03:13 | Outpatient (CLI) | payer MEDICAID, SELFPAY ==
[2021-02-11 11:23] LABS: COMMENT (LAB VIEW ONLY) 94.45 mg/dL; Microalb ug/mg Crea 4.3 ug/mg Cr
[2021-02-11 11:38] LABS: HDL Cholesterol 18 mg/dL (40-60)
[2021-02-11 12:06] LABS: Cholesterol 239 mg/dL (<200); Triglyceride 4305 mg/dL (<150)
[2021-02-11 12:07] LABS: LDL CHOLESTEROL 92 mg/dL (<100)
[2021-02-11 20:40] LABS: Estimated Average Glucose 143 mg/dL; Hemoglobin A1C 6.6 % (<5.7)
[2021-02-18 10:06] LABS: Lipoprotein (a) <7 nmol/L (<75)
== END 2021-02-11 03:14 | disposition home or self-care (01) ==
LOC: LBO 03:13
PROVIDERS: PCP Nurse Practitioner; Visit Provider Nurse Practitioner Family
DX: E11.65 Type 2 diabetes mellitus with hyperglycemia (principal); Z79.4 Long term (current) use of insulin; E78.2 Mixed hyperlipidemia
CPT/HCPCS: 36415; 80061; 83695; 83721; 82043; 82570; 83036; 84443

== ENCOUNTER 2021-05-14 15:46 | Outpatient (REF) | payer MEDICAID, SELFPAY ==
[2021-05-16 15:52] LABS: COVID-19 RT-PCR UVMMC Result Negative (Negative)
== END 2021-05-14 15:47 | disposition home or self-care (01) ==
LOC: LBN 15:46
PROVIDERS: PCP Nurse Practitioner; Visit Provider Nurse Practitioner
DX: J34.89 Other specified disorders of nose and nasal sinuses (principal); Z20.822 Contact with and (suspected) exposure to COVID-19
CPT/HCPCS: U0003

== ENCOUNTER 2021-05-27 15:24 | Outpatient (REF) | payer MEDICAID, SELFPAY ==
[2021-05-29 15:34] LABS: COVID-19 RT-PCR UVMMC Result Positive (Negative)
== END 2021-05-27 15:25 | disposition home or self-care (01) ==
LOC: LBN 15:24
PROVIDERS: PCP Nurse Practitioner; Visit Provider Nurse Practitioner
DX: Z20.822 Contact with and (suspected) exposure to COVID-19 (principal); J32.9 Chronic sinusitis, unspecified
CPT/HCPCS: U0003

== ENCOUNTER 2021-10-20 02:41 | Outpatient (CLI) | payer MEDICAID, SELFPAY | END 2021-10-20 02:42 | disposition home or self-care (01) | LOC: LBO 02:41 | PROVIDERS: PCP Nurse Practitioner; Visit Provider Nurse Practitioner ==

== ENCOUNTER → 2021-11-18 01:31 | Outpatient (CLI) | payer MEDICAID, SELFPAY | PROVIDERS: PCP Nurse Practitioner; Visit Provider Nurse Practitioner ==

== ENCOUNTER 2021-11-25 01:49 | Outpatient (CLI) | payer MEDICAID, SELFPAY ==
[2021-11-25 12:29] LABS: HCT 41.6 % (36.0-46.0); MCV 83 fL (80-95); MPV 11.9 fL (8.0-11.0); Platelet Count 243 10^3/uL (130-400); RBC 5.04 10^6/uL (3.93-5.22); RDW 13.1 % (11.7-14.6); RDW-SD 39.1 fL; WBC 7.61 10^3/uL (4.4-10.8)
[2021-11-25 14:04] LABS: BUN 21 mg/dL (7-18); Glucose 240 mg/dL (74-106)
[2021-11-25 14:05] LABS: CREATININE 0.4 mg/dL (0.55-1.02)
[2021-11-25 14:06] LABS: Cholesterol 172 mg/dL (<200); HDL Cholesterol 21 mg/dL (40-60)
[2021-11-25 14:07] LABS: Triglyceride 3714 mg/dL (<150)
[2021-11-25 14:08] LABS: Albumin 4.1 g/dL (3.4-5.0); Total Protein 7.7 g/dL (6.4-8.2)
[2021-11-25 14:09] LABS: Sodium 131 mmol/L (136-145)
[2021-11-25 14:10] LABS: Anion Gap 4.7 mmol/L (3-11); CO2 27.3 mmol/L (21.0-32.0); Chloride 99 mmol/L (98-107); Potassium 4.5 mmol/L (3.5-5.1)
[2021-11-25 14:13] LABS: AST 8 U/L (15-37)
[2021-11-26 10:31] LABS: HIV-1/2 Ag & Ab Screen Negative (Negative); Hepatitis C Ab w Rflx HCV PCR Negative (Negative)
== END 2021-11-25 01:50 | disposition home or self-care (01) ==
LOC: LOS 01:49
PROVIDERS: PCP Nurse Practitioner; Visit Provider Nurse Practitioner
DX: E11.42 Type 2 diabetes mellitus with diabetic polyneuropathy (principal); I10 Essential (primary) hypertension; E78.1 Pure hyperglyceridemia; Z79.4 Long term (current) use of insulin; Z11.59 Encounter for screening for other viral diseases; Z11.4 Encounter for screening for human immunodeficiency virus [HIV]
CPT/HCPCS: 36415; 80053; 80061; 83721; 85027; 86803; 87389

== ENCOUNTER 2021-12-30 10:55 | Day surgery (SDC) | payer MEDICAID, SELFPAY ==
[2021-12-30 11:26] VITALS: BP 102/61; PULSE 82; RESP 17; TEMP 36.6; O2SAT 97
[2021-12-30] MEDS: Lidocaine 1% Multi-Dose W/EPI 1/100,000 50 ML VIAL (13:41)
[2021-12-30] MEDS: Sodium Bicarbonate 50 MEQ/50 ML VIAL (13:42)
--- NOTE | 2021-12-30 13:45 | PDOC.DSDIS_ITS ---
Discharge Plan Disposition Patient Disposition: HOME Condition: Good Discharge Details Reason For Visit: RMF trigger release Attending Provider: Rod Mejia Primary Care Provider: Jessy Hathaway Home Meds and New Rx's Prescriptions: New acetaminophen 500 mg tablet 1,000 mg PO TID Qty: 90 0RF ibuprofen 600 mg tablet 600 mg PO TID PRN (Reason: pain) Qty: 90 0RF Continued albuterol sulfate 90 mcg/actuation HFA aerosol inhaler 2 puff inhalation QID PRN (Reason: shortness of breath or wheezing) Qty: 8.5 4RF ipratropium bromide 21 mcg (0.03 %) spray,non-aerosol 2 spray intranasal BID Qty: 30 12RF Rx Instructions: administer into each nostril lorazepam [Ativan] 0.5 mg tablet See Rx Instructions PO DAILY PRN (Reason: anxiety) Qty: 60 3RF Rx Instructions: 0.5 to 1mg PO daily PRN; insulin glargine [Lantus Solostar U-100 Insulin] 100 unit/mL (3 mL) insulin pen See Rx Instructions SC BID Rx Instructions: 35 units QAM, 37 units QHS subcut; endocrinology [facility] [place] 12/06/19 09/22/20-45U BID [facility] [place] endocrinology per pt-LH Humira 40 MG/0.8 ML kit 40 mg SQ twice a month aspirin 81 MG tablet,delayed release (DR/EC) 81 mg PO DAILY Rx Instructions: [facility] [place] STARTED RH (DME) BD Regular Bevel [place] 21 gauge x 1 1/2 needle 1 ea Miscellaneous AC & HS Qty: 400 3RF Rx Instructions: 5mm x 31G Dx E11.9 T2DM Test QID to maintain HbA1c less than 7% fluticasone propionate [Allergy Relief (fluticasone)] 50 mcg/actuation spray,suspension 2 spray intranasal DAILY Qty: 15.8 12RF Rx Instructions: administer into each nostril Jardiance 10 mg tablet 10 mg PO DAILY fexofenadine 60 mg tablet 60 mg PO BID Qty: 180 3RF fenofibrate nanocrystallized [Tricor] 145 mg tablet 145 mg PO DAILY Qty: 90 3RF insulin aspart U-100 [Novolog Flexpen U-100 Insulin] 100 unit/mL (3 mL) insulin pen See Rx Instructions subcut See Instructions Qty: 15 6RF Rx Instructions: 4-12 u TID subcut See Instructions; Dx: E11.9 to maintain HbA1c less than 7% omega-3 acid ethyl esters [Lovaza] 1 gram capsule 2 cap PO BID rosuvastatin 5 mg tablet 5 mg PO .tElf-Hxw-Wen Label Comments: 02/12/21 from office visit note pantoprazole 40 mg tablet,delayed release (DR/EC) 40 mg PO DAILY Qty: 90 3RF lisinopril 20 mg tablet 20 mg PO DAILY Qty: 90 3RF pregabalin [Lyrica] 150 mg capsule 150 mg PO TID Qty: 90 3RF montelukast 10 mg tablet 10 mg PO QPM Qty: 90 3RF sumatriptan 5 mg/actuation spray,non-aerosol 5 mg NS ONCE PRN (Reason: migraine headache) Qty: 12 3RF Rx Instructions: 1 spray at onset of migraine, may repeat dose 2 hours later if not effective, to treat no more than 4 headaches per month (DME) FreeStyle Mia 2 [place] Misc See Rx Instructions .ROUTE .MEDSUPPLY Qty: 1 0RF Rx Instructions: T 2 DM requiring basal insulin and bolus insulin sliding scale (DME) FreeStyle [place] 2 Sensor Kit See Rx Instructions .ROUTE .MEDSUPPLY Qty: 2 11RF Rx Instructions: T 2 DM requiring basal insulin and bolus insulin sliding scale Discontinued ibuprofen 600 mg tablet 600 mg PO Q8H PRN (Reason: pain, inflammation) Qty: 10 0RF acetaminophen [Tylenol] 325 MG tablet 650 mg PO Discharge Instructions Stand Alone Forms: [place] T. Finger Release Activity:: Activity as Tolerated Remove Dressings/Wound Care:: 48 hours Shower/Bathe:: 48 hours Diet:: As Tolerated Discharge Orders Discharge Orders: Discharge Order (Routine); Ordered 12/30/21 Ordered By: Robert Stone
[2021-12-30 13:53] VITALS: BP 118/69; PULSE 76; RESP 17; TEMP 36.4; O2SAT 96
--- NOTE | 2021-12-30 14:15 | W.PM.OP ---
Date of service: 12/30/21 Time of Service: 13:50 Operative Note Operative Note DATE OF PROCEDURE: 12/30/21 PRE-OP DIAGNOSIS: Right Middle Finger Trigger Finger POST-OP DIAGNOSIS: same PROCEDURE: Trigger Finger Release - Right Middle Finger SURGEON: Rod Mejia Refer to Anesthesia Record ESTIMATED BLOOD LOSS: 0 PATHOLOGY: none sent COMPLICATIONS: None Patient was transported to: same day Patient's condition: stable Indications: I have seen Mily in clinic for symptoms of a trigger finger. The catching, clicking, locking, and pain limited function. The diagnosis of trigger finger was evident. The symptoms had not responded to conservative measures. I discussed trigger finger release with the patient. I reviewed the risks of the procedure to include, but not limited to, bleeding, infection, pain, stiffness, incomplete release, damage to nerves or vessels, continued catching, recurrence. Despite these risks, the patient elected to proceed. Findings: There was a tightened A1 cipriano which was released. The flexor tendons were inspected and the patient was able to move the finger without any catching, clicking, or locking. Procedure Description: Mily was greeted in the preoperative holding area where the correct side was identified and marked. The consent was reviewed with the patient and signed. All questions were answered. She was taken back to the operating room. The patient was placed into the supine position on the operating room table with the right arm on an arm board. All bony prominences were well padded. No prophylactic antibiotics were administered since this was a clean, elective hand surgical case. The right arm was then prepped with Chloraprep and draped in a standard fashion with stockinette and extremity drape. A timeout to confirm correct identity, side and site, procedure, allergies, anesthesia, and medical concerns was performed. The surgical site was marked as a longitudinal incision directly over the A1 cipriano of the involved digit. This was confirmed with palpation during finger flexion. This area, overlying the metacarpal head, was then anesthetized with 1% Lidocaine. The patient tolerated this well and once the anesthetic had setup, the procedure began. A longitudinal incision was made through skin only, approximately 1cm. The deep tissues were dissected bluntly. Once the A1 cipriano and flexor tendons were identified the soft tissue including neurovascular structures were retracted medially and laterally. There were no crossing structures over the A1 cipriano. The proximal edge of the cipriano was identified and the cipriano was incised with tenotomy scissors. There was a release of the tendons once this was fully released. The tendons were then removed from the wound and inspected. Excess synovium was resected. The tendons were then returned and the patient was asked to move the finger into deep flexion and back to extension. There was no recreation of the pre-operative symptoms. The hand was then once more inspected for any A0 cipriano or area of possible constriction. The wound was then irrigated and the skin was closed with a 4-0 Nylon. This was dressed with gauze and a Conform dressing. The patient tolerated the procedure well and was returned to the Same Day Surgery area in a stable condition suffering no known complication.
== END 2021-12-30 14:12 | disposition home or self-care (01) ==
PROVIDERS: PCP Nurse Practitioner; Visit Provider Student in an Organized Health Care Education/Training Program
PROC: (CPT 26055; principal; 2021-12-30 13:00)
DX: M65.331 Trigger finger, right middle finger (principal); E11.40 Type 2 diabetes mellitus with diabetic neuropathy, unspecified; I10 Essential (primary) hypertension
CPT/HCPCS: 26055

== ENCOUNTER → 2022-01-13 01:28 | Outpatient (CLI) | payer MEDICAID, SELFPAY ==
--- NOTE | 2022-01-13 08:00 | DI.MAMMO_ITS ---
Exam(s) MAMMO SCREENING EXAM: MAMMO SCREENING CLINICAL HISTORY: screening,Z12.39 TECHNIQUE: Mammograms were interpreted according to the usual protocol including computer analysis w [employer] CAD system, tomosynthesis and C-view imaging. COMPARISON: 2012 through 2020 FINDINGS: The breasts are composed of scattered fibroglandular densities, Breast Density category B. No suspicious masses or suspicious microcalcifications are seen. No skin thickening or abnormal axillary lymph nodes are seen. There has been no significant change from prior exams. IMPRESSION: BI-RADS Category 1, Negative mammogram Yearly screening mammography is recommended. Breast Density - Category B, scattered fibroglandular densities. A negative radiographic report should not delay biopsy if a dominant or clinically suspicious mass is present. Up to ten percent of cancers are not identified on mammography. A negative report may reinforce clinical impression. Adenosis and dense breasts may obscure an underlying neoplasm. False positive reports average 6 to 10%. Patient will receive a letter notifying them of these results.
== END ==
PROVIDERS: PCP Nurse Practitioner; Visit Provider Nurse Practitioner
DX: Z12.31 Encounter for screening mammogram for malignant neoplasm of breast (principal)
CPT/HCPCS: 77063; 77067

== ENCOUNTER 2022-01-19 06:09 | Day surgery (SDC) | payer MEDICAID, SELFPAY ==
--- NOTE | 2022-01-19 06:09 | PDOC.DSDIS_ITS ---
Discharge Plan Disposition Patient Disposition: HOME Condition: Good Discharge Details Reason For Visit: Left De Quervain's Release Attending Provider: Rod Mejia Primary Care Provider: Jessy Hathaway Home Meds and New Rx's Prescriptions: New hydrocodone-acetaminophen 5-325 mg tablet 1 tab PO Q6H PRN (Reason: pain) Qty: 3 0RF Continued albuterol sulfate 90 mcg/actuation HFA aerosol inhaler 2 puff inhalation QID PRN (Reason: shortness of breath or wheezing) Qty: 8.5 4RF ipratropium bromide 21 mcg (0.03 %) spray,non-aerosol 2 spray intranasal BID Qty: 30 12RF Rx Instructions: administer into each nostril lorazepam [Ativan] 0.5 mg tablet See Rx Instructions PO DAILY PRN (Reason: anxiety) Qty: 60 3RF Rx Instructions: 0.5 to 1mg PO daily PRN; pantoprazole 40 mg tablet,delayed release (DR/EC) 40 mg PO DAILY Qty: 90 3RF (DME) BD Regular Bevel [place] 21 gauge x 1 1/2 needle 1 ea Miscellaneous AC & HS Qty: 400 3RF Rx Instructions: 5mm x 31G Dx E11.9 T2DM Test QID to maintain HbA1c less than 7% lisinopril 20 mg tablet 10 mg PO DAILY Qty: 90 3RF pregabalin [Lyrica] 50 mg capsule 50 mg PO QHS Qty: 30 3RF Rx Instructions: Take in addition to 150 mg bedtime dose for a total of 200 mg HS insulin glargine [Lantus Solostar U-100 Insulin] 100 unit/mL (3 mL) insulin pen See Rx Instructions .ROUTE .COMPLEX Rx Instructions: per pt. 35 units BID Humira 40 MG/0.8 ML kit 40 mg SQ twice a month aspirin 81 MG tablet,delayed release (DR/EC) 81 mg PO DAILY Rx Instructions: [facility] [place] STARTED RH fluticasone propionate [Allergy Relief (fluticasone)] 50 mcg/actuation spray,suspension 2 spray intranasal DAILY Qty: 15.8 12RF Rx Instructions: administer into each nostril Jardiance 10 mg tablet 10 mg PO DAILY fexofenadine 60 mg tablet 60 mg PO BID Qty: 180 3RF fenofibrate nanocrystallized [Tricor] 145 mg tablet 145 mg PO DAILY Qty: 90 3RF insulin aspart U-100 [Novolog Flexpen U-100 Insulin] 100 unit/mL (3 mL) insulin pen See Rx Instructions subcut See Instructions Qty: 15 6RF Rx Instructions: 4-12 u TID subcut See Instructions; Dx: E11.9 to maintain HbA1c less than 7% omega-3 acid ethyl esters [Lovaza] 1 gram capsule 2 cap PO BID rosuvastatin 5 mg tablet 5 mg PO .kSif-Brn-Qyq Label Comments: 02/12/21 from office visit note pregabalin [Lyrica] 150 mg capsule 150 mg PO TID Qty: 90 3RF montelukast 10 mg tablet 10 mg PO QPM Qty: 90 3RF sumatriptan 5 mg/actuation spray,non-aerosol 5 mg NS ONCE PRN (Reason: migraine headache) Qty: 12 3RF Rx Instructions: 1 spray at onset of migraine, may repeat dose 2 hours later if not effective, to treat no more than 4 headaches per month (DME) FreeStyle Mia 2 [place] Misc See Rx Instructions .ROUTE .MEDSUPPLY Qty: 1 0RF Rx Instructions: T 2 DM requiring basal insulin and bolus insulin sliding scale (DME) FreeStyle Mia 2 Sensor Kit See Rx Instructions .ROUTE .MEDSUPPLY Qty: 2 11RF Rx Instructions: T 2 DM requiring basal insulin and bolus insulin sliding scale acetaminophen 500 mg tablet 1,000 mg PO TID Qty: 90 0RF ibuprofen 600 mg tablet 600 mg PO TID PRN (Reason: pain) Qty: 90 0RF Discharge Instructions Additional Instructions: Thomas's Discharge Instructions Activity: You should keep the hand elevated as much as possible for the first few days. You may use the other fingers as tolerated but avoid trying to do too much too soon. You may perform light activities with the splint in place. Dressing/Cast: Your splint should stay in place at all times. Do NOT get it wet. You may loosen the BAIRON wrap if you feel it is too tight and then rewrap more loosely. Medications: - You should take Tylenol and Ibuprofen for baseline pain control. - You have Hydrocodone for breakthrough pain. - You may apply ice over the thumb. Follow-up: 7-10 days Referrals: Rod Mejia MD [ [facility] STAFF PHYSICIAN] - Equipment/Supplies: Splint Activity:: Elevate Remove Dressings/Wound Care:: Do Not Remove Shower/Bathe:: Cover Diet:: As Tolerated Discharge Orders Discharge Orders: Discharge Order (Routine); Ordered 01/19/22 Ordered By: Andria Mares DS: Diagnosis Discharge Diagnosis (1) De Quervain's tenosynovitis, left: Status: Acute
[2022-01-19 06:28] VITALS: BP 113/69; PULSE 68; RESP 17; TEMP 36.5; O2SAT 97
--- NOTE | 2022-01-19 06:37 | ANES.PREOP_ITS ---
General Info Date of Service Date Performed: 01/19/22 Height: 4 ft 11 in Weight: 70.1 kg Body Mass Index (BMI): 31.1 Surgical Procedure: Operation Date: 01/19/22 07:40 Proposed Procedure Side Surgeon p Wrist Dequervains Release Left Rod Mejia MD Meds Allergies and Home Medications Allergies Allergy/AdvReac Type Severity Reaction Status Date / Time adhesive Allergy rash Verified 01/19/22 06:23 metformin AdvReac Intermediate diarrhea Verified 01/19/22 06:23 ibuprofen [From Motrin] AdvReac GI Verified 01/19/22 06:23 Disturbances Home Medication Medication Instructions Recorded adalimumab 40 mg/0.8 mL 40 mg SQ twice a month 08/30/17 subcutaneous syringe kit (Humira) aspirin 81 mg tablet,delayed 81 mg PO DAILY 09/06/17 release fluticasone propionate 50 2 spray intranasal DAILY #15.8 mL 06/30/20 mcg/actuation nasal spray,suspension (Allergy Relief (fluticasone)) insulin glargine 100 unit/mL (3 See Rx Instructions .Route .COMPLEX 09/22/20 mL) subcutaneous pen (Lantus Solostar U-100 Insulin) albuterol sulfate 90 mcg/actuation 2 puff inhalation QID PRN 03/02/21 aerosol inhaler shortness of breath or wheezing #8.5 grams empagliflozin 10 mg tablet 10 mg PO DAILY 03/25/21 (Jardiance) fexofenadine 60 mg tablet 60 mg PO BID #180 tabs 04/27/21 fenofibrate nanocrystallized 145 145 mg PO DAILY #90 tab-caps 05/18/21 mg tablet (Tricor) insulin aspart U-100 100 unit/mL See Rx Instructions subcut See 05/18/21 (3 mL) subcutaneous pen (Novolog Instructions #15 mL Flexpen U-100 Insulin aspart) omega-3 acid ethyl esters 1 gram 2 cap PO BID 05/19/21 capsule (Lovaza) rosuvastatin 5 mg tablet 5 mg PO .pUkt-Rcg-Sws 06/01/21 pregabalin 150 mg capsule (Lyrica) 150 mg PO TID #90 caps 06/22/21 ipratropium bromide 21 mcg (0.03 2 spray intranasal BID #30 mL 07/07/21 %) nasal spray montelukast 10 mg tablet 10 mg PO QPM #90 tabs 07/20/21 sumatriptan 5 mg/actuation nasal 5 mg NS ONCE PRN migraine headache 09/02/21 spray #12 ea lorazepam 0.5 mg tablet (Ativan) See Rx Instructions PO DAILY PRN 10/06/21 anxiety #60 tab-caps FreeStyle Mia 2 [place] (flash #1 ea 11/20/21 glucose scanning reader) flash glucose sensor (FreeStyle #2 ea 11/20/21 Mia 2 Sensor kit) acetaminophen 500 mg tablet 1,000 mg PO TID #90 tabs 12/30/21 ibuprofen 600 mg tablet 600 mg PO TID PRN pain #90 tabs 12/30/21 lisinopril 20 mg tablet 10 mg PO DAILY #90 tabs 01/12/22 needle (disp) 21 G 21 gauge x 1 #400 ea 01/12/2205/31 (BD Regular Bevel [place]) pantoprazole 40 mg tablet,delayed 40 mg PO DAILY #90 tab-caps 01/12/22 release pregabalin 50 mg capsule (Lyrica) 50 mg PO QHS #30 caps 01/14/22 hydrocodone 5 mg-acetaminophen 325 1 tab PO Q6H PRN pain #3 tabs 01/19/22 mg tablet Current Visit Medications: Current Medications Generic Name Dose Route Start Last Admin Trade Name Arthurq PRN Reason Stop Dose Admin Acetaminophen 650 mg 01/19/22 06:08 Acetaminophen 325 Mg Tab PO Q4H PRN PRN Ringer's Solution 1,000 mls @ 80 mls/hr 01/19/22 06:00 IV 01/19/22 23:59 INFUSION HUYEN Cefazolin Sodium/Dextrose 2 gm in 50 mls @ 100 mls/hr 01/19/22 06:00 Ancef Duplex IVPB 01/19/22 23:59 PREOP HUYEN Ondansetron HCl 4 mg/ Sodium 52 mls @ 200 mls/hr 01/19/22 06:08 Chloride IVPB Q6H PRN PRN IV Miscellaneous Supplies 1 each 01/19/22 06:00 Iv Access IV 01/19/22 23:59 DIRECTED HUYEN Oxycodone HCl 5 mg 01/19/22 06:08 Oxycodone 5 Mg Tab PO Q3H PRN PRN Pain Sodium Chloride 0 ml 01/19/22 06:00 Normal Saline Flush 10 Ml Syr IV 01/19/22 23:59 PRN PRN Sodium Chloride 0 ml 01/19/22 06:00 Normal Saline 10 Ml Vial IJ 01/19/22 23:59 DIRECTED PRN Sterile Water 0 ml 01/19/22 06:00 Water,Injection,Sterile 10 Ml Vial IJ 01/19/22 23:59 DIRECTED PRN PFSH Active Problems Active Problems: Problem Status Onset Code Peripheral neuropathy G62.9 Low HDL (under 40) E78.6 De Quervain's tenosynovitis, left M65.4 Allergic rhinitis due to pollen J30.1 Hypertriglyceridemia 05/22/15 E78.1 Bilateral hand swelling M79.89 Bilateral hand pain M79.641, M79.642 Wrist lump R22.30 Nodule of finger R22.30 Anxiety F41.9 Non-proliferative diabetic retinopathy, both eyes E11.3293 Essential hypertension 09/26/94 I10 Environmental allergies Z91.09 Colon cancer screening Z12.11 Adhesive capsulitis of right shoulder M75.01 Diabetic neuropathy E11.40 Type 2 diabetes mellitus with diabetic polyneuropathy, with long-term current use of insulin 12/15/15 E11.42, Z79.4 Encounter for screening colonoscopy Z12.11 Medical History Medical History Abdominal pain Acute vestibular neuronitis of left ear Allergic rhinitis due to allergen Alternating constipation and diarrhea Anxiety Bloating Bursitis of right shoulder Chronic constipation Chronic maxillary sinusitis (08/01/17) Fall Gastroesophageal reflux disease (01/27/95) Hypocalcemia Impingement of right ulnar nerve Left-sided low back pain with left-sided sciatica (05/21/15) Migraine Migraine headache (08/11/15) history of migraine headaches since 2009 Positive Helicobacter pylori serology (08/11/15) Psoriasis Enbrel 08/2007-06/2017, Humira since 06/2017 Dr. Jose Rhinitis Right shoulder pain T2DM (type 2 diabetes mellitus) Vertigo Surgical History Surgical History Cholecystectomy (10/20/17) laparoscopic left meniscal tear (~2007) Dr Squires partial hysterectomy (~2004) Dr Haro S/P shoulder surgery (~2012) Марина, to correct frozen shoulder Trigger finger, right middle finger Injection: 04/17/2021 S/P release: 12/30/2021 Tobacco Smoking/Tobacco Use Status: Never Passive smoking exposure: No Alcohol Alcohol Intake: never Substance Use Substance use: Never Substance use type: does not use Vital Signs and Lab Results Vital Signs Most Recent Vital Signs in EMR: Most Recent Vital Signs Temp Pulse Resp BP Pulse Ox 36.5 C 68 17 113/69 97 01/19/22 06:28 01/19/22 06:28 01/19/22 06:28 01/19/22 06:28 01/19/22 06:28 Lab Results Blood Type / Crossmatch: No Data to Display Complete Blood Count: No Data to Display Complete Metabolic Panel: Hemoglobin A1c 6.8 % (4.5-5.7) H 01/12/22 10:30 Liver Function Panel: No Data to Display Coagulation Panel: No Data to Display Cardiac Panel: No Data to Display Arterial Blood Gas: No Data to Display Venous Blood Gas: No Data to Display Pancreas Panel: No Data to Display Thyroid Panel: No Data to Display Infectious Disease: No Data to Display Blood Cultures: No Data to Display Toxicology Panel: No Data to Display Panel: No Data to Display Imaging and Studies Imaging and Studies Study information below may be from another EMR and interpreted by another provider. Please see original notes in EMR for more complete details. Stress Test Summary: Impressions: Normal perfusion by Tc99m Sestamibi Imaging. Summary: 1. Myocardial perfusion imaging: Moderate size and intensity fixed anterior defect; dense breast shadow on raw images; defect resolved with Attenuation Correction; defect c/w breast artifact. No myocardial perfusion defects noted. 2. The calculated left ventricular ejection fraction after stress: 56%. No left ventricular regional motion abnormality. 09/26/17 Anesthesia Assessment and Plan Anesthesia History Personal History: PONV Family History: No Family History of Anesthesia Complications Exercise Tolerance Exercise Tolerance: Metabolic Equivalents>4 Cardiac & Pulmonary Exam Cardiac Exam: Normal S1/S2 Heart Sounds Pulmonary Exam: Clear Bilateral Breath Sounds Implantable Cardiac Device Does patient have a Pacemaker or an ICD?: No Airway Exam Known Difficult Airway: No Mallampati Class: 3 Mouth Opening: Normal (> 3cm) Thyromental Distance: Less than 3 cm Neck Range of Motion: Full ROM Neck Circumference: Thick Teeth Condition: Edentulous ASA Classification ASA Score: ASA 3 Emergency Case?: No NPO Status NPO Status: NPO Clears >2 hours, Solids >8 hours Status Status: History of Hysterectomy Anesthesia Plan Resuscitation Status: Full Code Anesthesia Technique: General Anesthesia Airway Planned: Natural Airway Monitors Used: Standard Monitors
[2022-01-19] MEDS: Lactated Ringers 1,000 ML 80 ML IV (06:40)
[2022-01-19 07:04] VITALS: BMI 31.1
[2022-01-19] MEDS: ceFAZolin 2 GM/50 ML BAG IVPB (07:26)
[2022-01-19] MEDS: Bupivacaine 0.25% Pres-Free 30 ML VIAL (07:37)
[2022-01-19 07:55] VITALS: BP 117/70; PULSE 66; RESP 16; TEMP 36.1; O2SAT 96
--- NOTE | 2022-01-19 08:21 | W.ANESPOSTOP ---
Postoperative Evaluation Date, Time and Location Date Performed: 01/19/22 Time Performed: 07:55 Patient Location: Day Surgery Unit Vital Signs Most Recent Imported Vital Signs: Most Recent Vital Signs Temp Pulse Resp BP Pulse Ox 36.1 C L 66 16 117/70 96 01/19/22 07:55 01/19/22 07:55 01/19/22 07:55 01/19/22 07:55 01/19/22 07:55 Pain Score Most Recent Pain Score: Most Recent Pain Score Pain Level 0 01/19/22 07:55 Assessment Mental Status: Awake (Alert & Oriented to Patient Baseline) Airway and Respiratory Function: Patent airway with normal (patient baseline) respiratory exam Cardiovascular Function: Hemodynamically Stable Hydration Status: Adequately Hydrated Nausea & Vomiting: No Nausea or Vomiting Pain: Pt. Denies Any Pain Peripheral Nerve Block: Patient did not receive a nerve block
[2022-01-19 08:24] VITALS: BP 140/81; PULSE 70; RESP 18; TEMP 36.4; O2SAT 95
--- NOTE | 2022-01-19 21:16 | W.PM.OP ---
Date of service: 01/19/22 Time of Service: 07:50 Operative Note Operative Note DATE OF PROCEDURE: 01/19/22 PRE-OP DIAGNOSIS: Left Dequervain's Tenosynovitis POST-OP DIAGNOSIS: same PROCEDURE: Left First Extensor Compartment Release SURGEON: Rod Mejia ANESTHESIA TYPE: General:No Airway Refer to Anesthesia Record ESTIMATED BLOOD LOSS: 0 PATHOLOGY: none sent TOURNIQUET TIME: 10 COMPLICATIONS: None Patient was transported to: same day Patient's condition: stable Indications: Mily is a 56 year old female who has had symptoms of Dequervain's tenosynovitis. Nonoperative treatment options had been trialed. Given their failure, I offered operative intervention. I reviewed the technical details of a first extensor compartment release. I reviewed the risk of the procedure to include bleeding, infection, pain, stiffness, tendon instability, damage to the superficial radial nerve, and complete release. Despite these risks, the patient elected to proceed. Findings: There was a tightened first excessive compartment. No subcompartments were seen encasing the EPB tendon. There were 2 main slips of APL tendon. Procedure Description: Mily was greeted in the preoperative holding area. Name and surgical site were confirmed. The history and physical was completed. The consent was reviewed the patient and signed. She was taken back to the operating room. The patient was placed in the supine position and monitored anesthesia care was initiated. The left was then prepped with ChloraPrep and draped in a standard fashion after a nonsterile tourniquet was placed high up onto the arm. Prophylactic antibiotics in the form of cefazolin were administered. A timeout was performed for safe surgery. The surgical site was drawn on the skin. The planned surgical field was anesthetized with 0.25% bupivacaine with epinephrine. The limb was exsanguinated and the tourniquet was inflated where it stayed for 10 minutes. A 2cm incision was made longitudinally over the radial styloid. The skin was incised only. The deep tissue subcutaneous fat was dissected with a tenotomy scissors trying to protect bridge of the superficial radial nerve. Any branches that were identified were retracted out of the way. The first compartment extensor tendons were then identified. The distal aspect of the first compartment was noted and were released. This release was performed more on the dorsal side to prevent tendon subluxation. The entirety of the first extensor compartment was then released. The slips of the abductor pollicis longus tendon were inspected. They removed to confirm the appropriate motion of the thumb. The extensor pollicis brevis tendon was then identified. It was fully released. Traction on the tendon was also used to confirm appropriate extension of the thumb confirming the release of the appropriate tendon. The dorsal radial surface of the radius was once again inspected to make sure there is no other sub-compartments or other restrictions to tendon motion. The wound was then thoroughly irrigated. The deep tissue was closed with a 3-0 Vicryl. The skin was closed with a running subjective 4-0 Monocryl. Skin glue was applied. The tourniquet is released without significant bleeding. The hand was dressed with 4 x 4's, web roll, thumb spica splint. All counts were correct. Patient was transferred back to same day surgery area in stable condition.
== END 2022-01-19 08:50 | disposition home or self-care (01) ==
PROVIDERS: PCP Nurse Practitioner; Visit Provider Student in an Organized Health Care Education/Training Program
PROC: (CPT 25000; principal; 2022-01-19 07:30)
DX: M65.4 Radial styloid tenosynovitis [de Quervain] (principal); E11.42 Type 2 diabetes mellitus with diabetic polyneuropathy; Z79.4 Long term (current) use of insulin
CPT/HCPCS: 25000; J0690; J1100; J2250; J2405; J2704

== ENCOUNTER 2022-07-09 01:50 | Outpatient (CLI) | payer MEDICAID, SELFPAY ==
[2022-07-09 11:41] LABS: Abs Immature Grans 0.02 10^3/uL (0.0-0.06); Absolute Basophil Count 0.06 10^3/uL (0.0-0.2); Absolute Eosinophil Count 0.14 10^3/uL (0.0-0.7); Absolute Lymphocyte Count 2.86 10^3/uL (1.2-3.4); Absolute Monocyte Count 0.33 10^3/uL (0.1-0.8); Absolute Neutrophil Count 4.34 10^3/uL (1.2-6.7); Basophils % 0.8; Eosinophils % 1.8; HCT 43.8 % (36.0-46.0); Immature Grans % 0.3; Lymphocytes % 36.9; MCV 81 fL (80-95); MPV 10.3 fL (8.0-11.0); Monocytes % 4.3; Neutrophils % 55.9; Platelet Count 210 10^3/uL (130-400); RDW 13.4 % (11.7-14.6); RDW-SD 39.2 fL; WBC 7.75 10^3/uL (4.4-10.8)
[2022-07-09 12:35] LABS: Cholesterol 221 mg/dL (<200); HDL Cholesterol 22 mg/dL (40-60)
[2022-07-09 12:49] LABS: ALT 29 U/L (14-59); AST 34 U/L (15-37); Albumin 3.9 g/dL (3.4-5.0); Alkaline Phosphatase 57 U/L (46-116); BUN 17 mg/dL (7-18); Bilirubin, Total 0.6 mg/dL (0.2-1.0); CREATININE 0.6 mg/dL (0.55-1.02); Calcium 9.3 mg/dL (8.5-10.1); Chloride 104 mmol/L (98-107); Glucose 80 mg/dL (74-106); Potassium 4.2 mmol/L (3.5-5.1); Sodium 140 mmol/L (136-145); Total Protein 7.2 g/dL (6.4-8.2)
[2022-07-09 12:56] LABS: Triglyceride 2951 mg/dL (<150)
[2022-07-09 12:57] LABS: LDL CHOLESTEROL 70 mg/dL (<100)
[2022-07-09 13:17] LABS: TSH (W/Ref FT4) 1.29 uIU/mL (0.36-3.74); Vitamin B12 471 pg/mL (193-986)
[2022-07-09 20:04] LABS: Estradiol 316 pg/mL (See Note)
[2022-07-12 12:46] LABS: Albumin 68.3 % (55.8-66.1); Albumin g/dL 4.8 g/dL (3.6-5.2); Total Protein 7.2 g/dL (6.3-8.2)
== END 2022-07-09 01:51 | disposition home or self-care (01) ==
PROVIDERS: Nurse Practitioner Adult Health; PCP Nurse Practitioner; Visit Provider Nurse Practitioner
DX: G62.9 Polyneuropathy, unspecified (principal); R23.2 Flushing; M79.10 Myalgia, unspecified site; I10 Essential (primary) hypertension; J45.909 Unspecified asthma, uncomplicated
CPT/HCPCS: 36415; 80053; 80061; 83721; 82607; 82670; 83735; 84165; 84443; 85025

== ENCOUNTER 2022-07-20 13:38 | Outpatient (REF) | payer MEDICAID, SELFPAY ==
[2022-07-22 11:39] LABS: COVID-19 RT-PCR UVMMC Result Positive (Negative)
== END 2022-07-20 13:39 | disposition home or self-care (01) ==
LOC: LBN 13:38
PROVIDERS: PCP Nurse Practitioner; Visit Provider Nurse Practitioner
DX: Z20.822 Contact with and (suspected) exposure to COVID-19 (principal)
CPT/HCPCS: U0003

== ENCOUNTER 2023-02-17 12:47 | Outpatient (CLI) | payer MEDICAID, SELFPAY ==
[2023-02-17 10:46] LABS: Anion Gap 14.3 mmol/L (3-11); CO2 20.7 mmol/L (21.0-32.0); Chloride 99 mmol/L (98-107); Glucose 257 mg/dL (74-106); Magnesium 2.1 mg/dL (1.8-2.4); Potassium 4.4 mmol/L (3.5-5.1)
[2023-02-17 10:50] LABS: Sodium 134 mmol/L (136-145)
[2023-02-17 10:53] LABS: HDL Cholesterol 17 mg/dL (40-60)
[2023-02-17 11:22] LABS: Cholesterol 171 mg/dL (<200)
[2023-02-17 11:28] LABS: Triglyceride 4050 mg/dL (<150)
[2023-02-17 11:39] LABS: LDL CHOLESTEROL 61 mg/dL (<100)
[2023-02-17 12:00] LABS: ALT 61 U/L (14-59); Albumin 3.7 g/dL (3.4-5.0); Alkaline Phosphatase 49 U/L (46-116); BUN 24 mg/dL (7-18); Bilirubin, Total 0.4 mg/dL (0.2-1.0); CREATININE 0.9 mg/dL (0.55-1.02); Calcium 9.9 mg/dL (8.5-10.1); Total Protein 7.8 g/dL (6.4-8.2)
[2023-02-17 12:23] LABS: AST 48 U/L (15-37)
== END 2023-02-17 12:48 | disposition home or self-care (01) ==
LOC: LBO 12:47
PROVIDERS: PCP Nurse Practitioner; Visit Provider Nurse Practitioner
DX: I10 Essential (primary) hypertension (principal); E78.1 Pure hyperglyceridemia; R25.2 Cramp and spasm; E11.42 Type 2 diabetes mellitus with diabetic polyneuropathy; Z79.4 Long term (current) use of insulin
CPT/HCPCS: 36415; 80053; 80061; 83721; 83735

== ENCOUNTER 2023-10-17 05:31 | Outpatient (CLI) | payer BC, SELFPAY ==
[2023-10-17 09:56] LABS: Hemoglobin A1C 6.9 % (<5.7)
[2023-10-17 10:01] LABS: COMMENT (LAB VIEW ONLY) 68.16 mg/dL; Microalb ug/mg Crea 6.9 ug/mg Cr
[2023-10-17 10:08] LABS: CO2 27.2 mmol/L (21.0-32.0); Cholesterol 136 mg/dL (<200); HDL Cholesterol 29 mg/dL (40-60); TSH (W/Ref FT4) 1.28 uIU/mL (0.36-3.74); Triglyceride 811 mg/dL (<150)
[2023-10-17 10:31] LABS: LDL CHOLESTEROL 42 mg/dL (<100)
[2023-10-17 10:54] LABS: ALT 36 U/L (14-59); AST 17 U/L (15-37); Albumin 4.3 g/dL (3.4-5.0); Alkaline Phosphatase 41 U/L (46-116); Anion Gap 10.8 mmol/L (3-11); BUN 22 mg/dL (7-18); Bilirubin, Total 0.6 mg/dL (0.2-1.0); CREATININE 0.8 mg/dL (0.55-1.02); Calcium 9.8 mg/dL (8.5-10.1); Chloride 105 mmol/L (98-107); Estimated GFR 86.96 (mL/min/1.73m2); Glucose 121 mg/dL (74-106); Potassium 4.3 mmol/L (3.5-5.1); Sodium 143 mmol/L (136-145); Total Protein 7.6 g/dL (6.4-8.2)
== END 2023-10-17 05:32 | disposition home or self-care (01) ==
LOC: LBO 05:32
PROVIDERS: Absent Provider Nurse Practitioner; PCP Nurse Practitioner; Referring Provider Nurse Practitioner; Visit Provider Nurse Practitioner
DX: I10 Essential (primary) hypertension (principal); E11.42 Type 2 diabetes mellitus with diabetic polyneuropathy; Z79.4 Long term (current) use of insulin
CPT/HCPCS: 36415; 80053; 80061; 83721; 82043; 82570; 83036; 84443

== ENCOUNTER 2024-04-10 04:57 | Outpatient (CLI) | payer BC, SELFPAY ==
[2024-04-10 10:00] LABS: ALT 23 U/L (14-59); AST 17 U/L (15-37); Albumin 4.1 g/dL (3.4-5.0); Alkaline Phosphatase 49 U/L (46-116); Anion Gap 7.3 mmol/L (3-11); BUN 15 mg/dL (7-18); Bilirubin, Total 0.57 mg/dL (0.2-1.0); CO2 28.7 mmol/L (21.0-32.0); CREATININE 0.8 mg/dL (0.55-1.02); Calcium 9.6 mg/dL (8.5-10.1); Calculated LDL 57 mg/dL (<100); Chloride 109 mmol/L (98-107); Cholesterol 144 mg/dL (<200); Estimated GFR 86.42 (mL/min/1.73m2); Glucose 131 mg/dL (74-106); HDL Cholesterol 38 mg/dL (40-60); Potassium 4.5 mmol/L (3.5-5.1); Sodium 145 mmol/L (136-145); Total Protein 7.6 g/dL (6.4-8.2); Triglyceride 245 mg/dL (<150)
[2024-04-12 11:59] LABS: TB Interpretation Negative (Negative); TB1 Ag minus Nil 0.01 IU/mL; TB2 Ag minus Nil 0.01 IU/mL
== END 2024-04-10 04:58 | disposition home or self-care (01) ==
PROVIDERS: Surgery; PCP Nurse Practitioner; Visit Provider Dermatology
DX: E78.1 Pure hyperglyceridemia (principal); I10 Essential (primary) hypertension; E11.42 Type 2 diabetes mellitus with diabetic polyneuropathy; Z79.4 Long term (current) use of insulin; L40.0 Psoriasis vulgaris; Z79.899 Other long term (current) drug therapy
CPT/HCPCS: 36415; 80053; 80061; 83036; 86480

== ENCOUNTER 2024-05-29 01:49 | Outpatient (CLI) | payer BC, SELFPAY ==
--- NOTE | 2024-05-29 07:45 | DI.MAMMO_ITS ---
Exam(s) MAMMO SCREENING EXAM: MAMMO SCREENING CLINICAL HISTORY: screening,z12.39. TECHNIQUE: Bilateral full field digital CC and MLO mammographic images were obtained with 3D tomosyn thesis and utilizing computer aided detection (CAD). COMPARISON: Prior mammograms were reviewed. FINDINGS: There are no new right breast findings. In the left breast there is a lobulated nodular density seen on the 3D MLO view located 2 cm in from the nipple on the MLO view and measuring approximately 9 x 8 mm. Further imaging recommended. Also in the left breast on the MLO view another asymmetric density-possible nodule towards the upper outer quadrant located 8 cm in from the nipple is noted.. Further imaging recommended. There are no malignant-appearing microcalcification groups in these regions nor elsewhere in either b reast. There is no significant architectural distortion nor skin thickening-retraction. IMPRESSION: 1. No radiographic evidence of malignancy in the right breast. 2. There are 2 separate areas of asymmetric density-possible nodules in the left breast, best seen on the MLO view. Spot compression MLO views and complete left breast ultrasound recommended. BI-RADS Category 0 - Incomplete: Need additional imaging evaluation Breast Density - Category B - Scattered areas of fibroglandular density Breast density Category C or D implies that the patient has dense breast tissue. Dense breast tissue can make it harder to find cancer on a mammogram. Dense breast tissue is also associated with an incr eased risk of breast cancer. This information about the result of the mammogram report was provided to the patient to raise their awareness. Use this report when you speak with the patient about their risks for breast cancer, which includes their family history. At that time, you may recommend additional screening tests (Ultrasoun d or MRI) as these tests may add significant information. A negative radiographic report should not delay biopsy if a dominant or clinically suspicious mass is present. Up to ten percent of cancers are not identified on mammography. A negative report may reinforce clinical impression. Adenosis and dense breasts may obscure an underlying neoplasm. False positive reports average 6 to 10%. Patient will receive a letter notifying them of these results.
== END 2024-05-29 02:09 ==
PROVIDERS: PCP Nurse Practitioner; Visit Provider Nurse Practitioner
DX: Z12.31 Encounter for screening mammogram for malignant neoplasm of breast (principal); R92.323 Mammographic fibroglandular density, bilateral breasts
CPT/HCPCS: 77063; 77067

== ENCOUNTER 2024-06-05 01:23 | Outpatient (CLI) | payer BC, SELFPAY ==
--- NOTE | 2024-06-05 10:00 | DI.MAMMO_ITS ---
Exam(s) MG MAMMO SCREEN CALL BACK UNI US BREAST LT LIMITED EXAM: MG MAMMO SCREEN CALL BACK UNI and U/S breast LT limited CLINICAL HISTORY: R92.8 Abn Mammo, 2 seperate areas of asymmetric density possible nodules. TECHNIQUE: Craniocaudal and mediolateral oblique Full Field Digital Mammography views of the left br east with Computer Aided Diagnosis followed by Tomosynthesis and limited left breast ultrasound. COMPARISON: Comparison is made with prior examinations. FINDINGS: Mammography/Tomosynthesis: Masses/Architectural Distortion: The area in the upper left breast on the MLO view does not persist o n the additional view. The area in the retroareolar region of the left breast appear to represent du cts. No suspicious nodules or areas of architectural distortion is seen. Microcalcifictions: No suspicious pleomorphic-type are seen. Skin Thickening/Nipple Retraction: None. Limited left breast US: Echotexture: Normal appearance of the glandular tissue. Shadowing: No suspicious foci. Cyst: None. Solid lesions: None seen. Ductal dilation: Normal appearing ducts are seen in the retroareolar region. IMPRESSION: 1. No evidence of malignancy is noted. 2. Unless there is more urgent need, follow-up screening mammography is recommended, as per [place] [employer] guidelines. 3. The findings were discussed with the patient on the date of the examination. BI-RADS Category 1 - Negative Breast Density - Category B - Scattered areas of fibroglandular density Breast density Category C or D implies that the patient has dense breast tissue. Dense breast tissue can make it harder to find cancer on a mammogram. Dense breast tissue is also associated with an incr eased risk of breast cancer. This information about the result of the mammogram report was provided to the patient to raise their awareness. Use this report when you speak with the patient about their risks for breast cancer, which includes their family history. At that time, you may recommend additional screening tests (Ultrasoun d or MRI) as these tests may add significant information. A negative radiographic report should not delay biopsy if a dominant or clinically suspicious mass is present. Up to ten percent of cancers are not identified on mammography. A negative report may reinforce clinical impression. Adenosis and dense breasts may obscure an underlying neoplasm. False positive reports average 6 to 10%. Patient will receive a letter notifying them of these results.
== END 2024-06-05 01:43 ==
LOC: DI 01:23
PROVIDERS: PCP Nurse Practitioner; Visit Provider Nurse Practitioner
DX: R92.8 Other abnormal and inconclusive findings on diagnostic imaging of breast (principal); Z12.31 Encounter for screening mammogram for malignant neoplasm of breast; R92.323 Mammographic fibroglandular density, bilateral breasts
CPT/HCPCS: 76642; 77063; 77067

== ENCOUNTER 2024-10-17 02:53 | Outpatient (CLI) | payer BC, SELFPAY ==
[2024-10-17 10:15] LABS: Hemoglobin A1C 5.8 % (<5.7)
== END 2024-10-17 02:54 | disposition home or self-care (01) ==
LOC: LBO 02:53
PROVIDERS: PCP Nurse Practitioner; Visit Provider Surgery
DX: E11.40 Type 2 diabetes mellitus with diabetic neuropathy, unspecified (principal)
CPT/HCPCS: 36415; 83036

== ENCOUNTER 2024-11-17 11:02 | Emergency (ER) | payer BC, SELFPAY ==
[2024-11-17 11:06] VITALS: BP 187/89; PULSE 100; RESP 16; O2SAT 99
--- NOTE | 2024-11-17 11:20 | ED.GENADUL_ITS ---
Discharge Plan Disposition Patient Disposition: Home Condition: Good Discharge Details Clinical Impression: Laceration of left middle finger, Laceration of left ring finger, Laceration of left little finger Primary Care Provider: Jessy Hathaway ED Provider: Rell Huynh Home Meds and New Rx's Prescriptions: New cephalexin 500 mg capsule 500 mg PO QID 7 Days Qty: 28 0RF No Action ipratropium bromide 21 mcg (0.03 %) spray,non-aerosol 2 spray intranasal BID Qty: 30 12RF Rx Instructions: administer into each nostril (DME) BD Regular Bevel Stratton 21 gauge x 1 1/2 needle 1 ea Miscellaneous AC & HS Qty: 400 3RF Rx Instructions: 5mm x 31G Dx E11.9 T2DM Test QID to maintain HbA1c less than 7% fluticasone propionate [Flonase Allergy Relief] 50 mcg/actuation spray,suspension 2 spray intranasal DAILY Qty: 16 12RF Rx Instructions: administer into each nostril Mounjaro 5 mg/0.5 mL pen injector 5 mg subcut QWEEK (DME) Dexcom G7 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 Misc See Rx Instructions .Route Rx Instructions: As directed ibuprofen 600 mg tablet 600 mg PO TID PRN (Reason: pain) Qty: 270 8RF triamcinolone acetonide 0.5 % cream 1 applic topical DAILY Qty: 15 0RF Rx Instructions: Apply to legs and trunk lorazepam [Ativan] 0.5 mg tablet See Rx Instructions PO DAILY PRN (Reason: anxiety) Qty: 30 2RF Rx Instructions: 0.5 to 1mg PO daily PRN; Humira 40 MG/0.8 ML kit 40 mg SQ twice a month Jardiance 10 mg tablet 10 mg PO DAILY Qty: 90 3RF albuterol sulfate 90 mcg/actuation HFA aerosol inhaler 2 puff inhalation QID PRN (Reason: shortness of breath or wheezing) Qty: 8.5 12RF sumatriptan 5 mg/actuation spray,non-aerosol 5 mg NS ONCE PRN (Reason: migraine headache) Qty: 12 3RF Rx Instructions: 1 spray at onset of migraine, may repeat dose 2 hours later if not effective, to treat no more than 4 headaches per month blister packed meds .Route Rx Instructions: [facility] blister packing meds pantoprazole 40 mg tablet,delayed release (DR/EC) See Rx Instructions .ROUTE .COMPLEX Qty: 90 3RF Dose Instruction: TAKE ONE TABLET BY MOUTH EVERY DAY Rx Instructions: TAKE ONE TABLET BY MOUTH EVERY DAY fexofenadine [Suni Allergy] 60 mg tablet 60 mg PO BID Qty: 180 3RF aspirin 81 mg tablet,delayed release (DR/EC) 81 mg PO DAILY Qty: 90 3RF [place] Instructions[place] [facility] [place] fenofibrate nanocrystallized [Tricor] 145 mg tablet 145 mg PO DAILY Qty: 90 3RF rosuvastatin 5 mg tablet See Rx Instructions .ROUTE .COMPLEX Qty: 36 3RF Dose Instruction: TAKE 1 TABLET BY MOUTH ON TUESDAY, TUESDAY & TUESDAY Rx Instructions: TAKE 1 TABLET BY MOUTH ON TUESDAY, TUESDAY & TUESDAY omega-3 acid ethyl esters [Lovaza] 1 gram capsule 2 cap PO BID Qty: 360 3RF metformin 1,000 mg tablet 1,000 mg PO DAILY Patient Comments: 07/31/24 ov at [facility] montelukast 10 mg tablet See Rx Instructions .ROUTE .COMPLEX Qty: 90 3RF Dose Instruction: TAKE 1 TABLET BY MOUTH EVERY EVENING Rx Instructions: TAKE 1 TABLET BY MOUTH EVERY EVENING Discharge Instructions Instructions: Laceration Repair With Stitches ED Additional Instructions: At this time your fingers have been sutured. Please take the antibiotic Keflex to help prevent any infection. Please keep the area clean and dry. Monitor closely for any redness, drainage or discharge. For nonabsorbable sutures, please return in 7 to 10 days to have the wound reassessed and the sutures removed. If you come back to the emergency department here it will be free of charge for the suture removal. For long- term scar cosmesis, please make sure to avoid any sun to the area for the next year. Apply moisturizer or vitamin E to the area twice daily for the next 12 months for the best chance of wound/scar medication. Please take a daily multivitamin as well as this can help in wound healing. If you notice any worsening of your symptoms, or any new symptoms such as vomiting, diarrhea, fever, chills, shortness of breath, chest pain, numbness, weakness, or fainting , please return immediately to the emergency department for reevaluation. Please follow up with your primary care provider as soon as possible for reassessment and reevaluation. As always, it was a pleasure participating in your medical care today. Referrals: Jessy Hathaway NP [Primary Care Provider, Medicine] Discharge Data Discharge Date/Time-TO BE ENTERED AT DEPARTURE: 11/17/24 12:47 HPI General Date/Time Provider Initiated Documentation: 11/17/24 11:04 . HPI Narrative: This is a pleasant 58-year-old female with a past medical history of Raynaud's, high cholesterol, hypertension, type 2 diabetes, whose tetanus was last updated in 2013, who is right-hand dominant who presents today for evaluation of left finger lacerations. Patient was using an electric hedge tremor when her hand sl ipped and the hedge tremor caught her 3rd, 4th and 5th digits. She came to the ER for evaluation shortly thereafter. She denies any numbness or tingling. She has been applying pressure to the affected areas. No other complaints at this time. Related Data Home Medications ?Medication ?Instructions ?Recorded ?Confirmed adalimumab 40 mg/0.8 mL 40 mg SQ twice a month 08/3010/10/24 subcutaneous syringe kit (Humira) ipratropium bromide 21 mcg (0.03 2 spray intranasal BI D #30 mL 07/07/21 10/10/24 %) nasal spray needle (disp) 21 G 21 gauge x 1 #400 ea 01/12/2210/10/ (BD Regular Bevel Stratton) empagliflozin 10 mg tablet 10 mg PO DAILY #90 tabs 11/1810/10/24 (Jardiance) albuterol sulfate 90 mcg/actuation 2 puff inhalation Q ID PRN 06/29/22 10/10/24 aerosol inhaler shortness of breath or wheez ing #8.5 grams sumatriptan 5 mg/actuation nasal 5 mg NS ONCE PRN migr shaye headache 09/27/22 10/10/24 spray #12 ea blister packed meds .Route 05/18/23 10/10/24 fluticasone propionate 50 2 spray intranasal DAILY #16 grams 09/28/23 10/10/24 mcg/actuation nasal spray,suspension (Flonase Allergy Relief) pantoprazole 40 mg tablet,delayed See Rx Instructions .Route 01/24/24 10/10/24 release .COMPLEX #90 tabs blood-glucose,magnetic resonance imaging director,cont 04/02/24 10/10/24 (Dexcom G7 Stockroom Helper) ibuprofen 600 mg tablet 600 mg PO TID PRN pain #270 tabs 04/02/24 10/10/24 tirzepatide 5 mg/0.5 mL 5 mg subcut QWEEK 04/02/24 0 10/10/24 subcutaneous pen injector (Mounjaro) aspirin 81 mg tablet,delayed 81 mg PO DAILY #90 tabs 1 06/17/23 10/10/24 release fenofibrate nanocrystallized 145 145 mg PO DAILY #90 t ab-caps 04/17/24 10/10/24 mg tablet (Tricor) fexofenadine 60 mg tablet (Suni 60 mg PO BID #180 t abs 04/17/24 10/10/24 Allergy) rosuvastatin 5 mg tablet See Rx Instructions .Route 1 07/16/23 10/10/24 .COMPLEX #36 tabs omega-3 acid ethyl esters 1 gram 2 cap PO BID #360 cap s 07/11/24 10/10/24 capsule (Lovaza) metformin 1,000 mg tablet 1,000 mg PO DAILY 07/31/24 0 10/10/24 montelukast 10 mg tablet See Rx Instructions .Route 0 09/03/24 10/10/24 .COMPLEX #90 tabs triamcinolone acetonide 0.5 % 1 applic topical DAILY # 15 grams 10/04/24 10/10/24 topical cream lorazepam 0.5 mg tablet (Ativan) See Rx Instructions P O DAILY PRN 10/10/24 10/10/24 anxiety #30 tab-caps cephalexin 500 mg capsule 500 mg PO QID 7 days #28 cap s 11/17/24 Previous Rx's ?Medication ?Instructions ?Recorded ipratropium bromide 21 mcg (0.03 2 spray intranasal BI D #30 mL 07/07/21 %) nasal spray needle (disp) 21 G 21 gauge x 1 #400 ea 01/12/22 1/2 (BD Regular Bevel Stratton) empagliflozin 10 mg tablet 10 mg PO DAILY #90 tabs 11/18 (Jardiance) albuterol sulfate 90 mcg/actuation 2 puff inhalation Q ID PRN 06/29/22 aerosol inhaler shortness of breath or wheez ing #8.5 grams sumatriptan 5 mg/actuation nasal 5 mg NS ONCE PRN migr shaye headache 09/27/22 spray #12 ea fluticasone propionate 50 2 spray intranasal DAILY #16 grams 09/28/23 mcg/actuation nasal spray,suspension (Flonase Allergy Relief) pantoprazole 40 mg tablet,delayed See Rx Instructions .Route 01/24/24 release .COMPLEX #90 tabs ibuprofen 600 mg tablet 600 mg PO TID PRN pain #270 tabs 04/02/24 aspirin 81 mg tablet,delayed 81 mg PO DAILY #90 tabs 1 06/17/23 release fenofibrate nanocrystallized 145 145 mg PO DAILY #90 t ab-caps 04/17/24 mg tablet (Tricor) fexofenadine 60 mg tablet (Suni 60 mg PO BID #180 t abs 04/17/24 Allergy) rosuvastatin 5 mg tablet See Rx Instructions .Route 1 07/16/23 .COMPLEX #36 tabs omega-3 acid ethyl esters 1 gram 2 cap PO BID #360 cap s 07/11/24 capsule (Lovaza) montelukast 10 mg tablet See Rx Instructions .Route 0 09/03/24 .COMPLEX #90 tabs triamcinolone acetonide 0.5 % 1 applic topical DAILY # 15 grams 10/04/24 topical cream lorazepam 0.5 mg tablet (Ativan) See Rx Instructions P O DAILY PRN 10/10/24 anxiety #30 tab-caps cephalexin 500 mg capsule 500 mg PO QID 7 days #28 cap s 11/17/24 Allergies Allergy/AdvReac Type Severity Reaction Status Date / Time adhesive Allergy rash Verified 11/17/24 11:06 metformin AdvReac Intermediate diarrhea Verified 11/17/24 11:06 ibuprofen (From Motrin) AdvReac GI Verified 11/17/24 11:06 Disturbances General Stated Complaint: Laceration NASH: 3 Exam Narrative Exam Narrative: 1.Const: Well-nourished, Well-developed, appearing stated age 2.Eyes: PERRL, no conjunctival injection, and symmetrical lids. 3.ENT: Atraumatic external nose and ears. Moist MM. Neck: Symmetric, trachea midline, No thyromegaly. 4.CVS: +S1/S2, Peripheral pulses 2+ and equal in all extremities. Brisk capillary refill in all extremities. 5.RESP: Unlabored respiratory effort. Clear to auscultation bilaterally. No wheezes rales or rhonchi 6.GI: Soft, Nontender/Nondistended, No hepatosplenomegaly. No guarding or rebound. 7.MSK: Normocephalic, patient demonstrates traumatic lacerations to the palmar aspect of the 3rd, 4th and 5th digits on the left hand. Patient demonstrates excellent flexion and extension of these fingers. Intact sensation distally. Laceration on the third digit is stellate, with mild maceration. There is mild active bleeding but no squirting hemorrhage. Surprisingly distal sensation is intact. Patient demonstrates excellent flexion and extension. The fourth digit demonstrates a linear laceration about 3 cm long on the palmar aspect. No active hemorrhage. Intact sensation and excellent flexion and extension of the fingers. The fifth digit demonstrates a small 1 cm linear laceration on the palmar surface the distal tip. Excellent movement and sensation. 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 Sensation grossly intact, no focal neurologic deficits. 10.Psych: (AAO) x3. Appropriate mood and affect Course Vital Signs Vital signs: Vital Signs Pulse 100 H 11/17/24 11:06 Respiratory Rate 16 11/17/24 11:06 Blood Pressure 187/89 H 11/17/24 11:06 Pulse Oximetry 99 11/17/24 11:06 Pulse 100 H 11/17/24 11:06 Respiratory Rate 16 11/17/24 11:06 Blood Pressure 187/89 H 11/17/24 11:06 Pulse Oximetry 99 11/17/24 11:06 Oxygen Delivery Method Room Air 11/17/24 11:06 Oxygen Flow Rate 0 11/17/24 11:06 Pain Level 10 11/17/24 11:06 Procedure Laceration Laceration 1: Date of Procedure: 11/17/24 Time of procedure: 15:04 Provider that performed the procedure: Rell Huynh Standard Time Out Performed: No Patient Consented: Verbally Site: hand (Left middle finger) Side (If applicable): left (Middle finger) Description: stellate and irregular Depth: simple, single layer Local anesthetic: Lidocaine 2% Amount of anesthesia used (mL): 3 Pre-repair:: wound explored, irrigated extensively, deep structures intact and wound margins revised Skin layer closed with: nylon Suture size: 4-0 Number of sutures:: 11 Technique: simple, interrupted Laceration 2: Date of Procedure: 11/17/24 Time of procedure: 15:28 Provider that performed the procedure: Rell Ignacio Lino Standard Time Out Performed: Yes Patient Consented: Verbally Site: hand (Left ring finger) Side (If applicable): left Description: linear Depth: simple, single layer Local anesthetic: Lidocaine 2% Amount of anesthesia used (mL): 3 Pre-repair:: wound explored, irrigated extensively and deep structures intact Skin layer closed with: nylon Suture size: 4-0 Number of sutures:: 7 Technique: simple, interrupted Laceration 3: Date of Procedure: 11/17/24 Time of procedure: 15:29 Provider that performed the procedure: Rell Ignacio Eidson Standard Time Out Performed: Yes Patient Consented: Verbally Site: hand (Fifth digit) Side (If applicable): left Description: linear Depth: simple, single layer Local anesthetic: Lidocaine 2% Amount of anesthesia used (mL): 3 Pre-repair:: wound explored, irrigated extensively and deep structures intact Skin layer closed with: nylon Suture size: 4-0 Number of sutures:: 3 Technique: simple, interrupted Medical Decision Making This is a pleasant 58-year-old female with a past medical history of Raynaud's, high cholesterol, hypertension, type 2 diabetes, whose tetanus was last updated in 2013, who is right-hand dominant who presents today for evaluation of left finger lacerations. Patient was using an electric hedge tremor when her hand slipped and the hedge tremor caught her 3rd, 4th and 5th digits. She came to the ER for evaluation shortly thereafter. She denies any numbness or tingling. She has been applying pressure to the affected areas. No other complaints at this time. Exam demonstrates a stellate laceration on the third digit a long linear laceration on the fourth digit and a small linear laceration on the fifth digit. Sensation is intact, capillary refill is intact. Normal flexion and extension is present suggesting no evidence of tendon disruption. We will update the patient's tetanus status, we will anesthetize, clean and suture. Will start the patient on prophylactic antibiotics secondary to her history of diabetes and risk for infection. The patient's middle ring and pinky finger were anesthetized, they are extensively cleaned. The fifth digit was sutured with 3 simple interrupted sutures for its linear laceration. The fourth digit was sutured with 7 simple interrupted sutures for its long linear laceration. The third digit was sutured with 11 simple interrupted sutures for notably stellate and irregularly bordered laceration. Patient tolerated this well. She will be given a small bottle of Keflex and a prescription for home. Discussed red flags for which to return as well as proper wound care. Discussed concern for potential delayed wound healing for the third digit injury secondary to the macerated nature of the laceration. I have extensively reviewed the treatment plan and discharge instructions with the patient. I have addressed all patient concerns at this time. The patient was made aware of what symptoms to monitor for that would warrant a return to the emergency department. Discussed the plan with the patient, they demonstrate verbal understanding and agreement with our assessment and plan at this time. The documentation in this chart was dictated using [employer] dictation software. Please excuse any dictation errors. PFSH All Active Problems (Updated 11/17/24 @ 12:25 by Rell Huynh DO) Laceration of left little finger (Acute) Laceration of left ring finger (Acute) Laceration of left middle finger (Acute) Erythromelalgia (Acute) 09/25/24 Vascular Raynaud disease (Acute) 09/25/24 Vascular Recurrent sinusitis (Acute) Pure hyperglyceridemia (Acute) 08/25/22 Weight/Wellness Overweight (Acute) 08/25/22 Weight and Wellness Positive self-administered antigen test for COVID-19 (Acute) 07/20/22. positive home test. sx onset 07/18/22 Essential hypertension (Acute 09/26/94) Hypertriglyceridemia (Acute 05/22/15) Type 2 diabetes mellitus with diabetic polyneuropathy, with long-term current use of insulin (Acute 12/15/15) 08/26/22 Endocrinology Encounter for screening colonoscopy (Acute) Diabetic neuropathy (Acute) Adhesive capsulitis of right shoulder (Chronic) Colon cancer screening (Acute) Environmental allergies (Acute) Non-proliferative diabetic retinopathy, both eyes (Acute) 05/13/20-Retina Center [facility]--modest OD; severe OS Anxiety (Chronic) Nodule of finger (Acute) Wrist lump (Acute) Bilateral hand pain (Acute) Bilateral hand swelling (Acute) Allergic rhinitis due to pollen (Acute) De Quervain's tenosynovitis, left (Acute) Injected: 12/25/2020 Low HDL (under 40) (Acute) Peripheral neuropathy (Acute) Cataract (Chronic) Sciatica (Acute) Medical History (Updated 11/17/24 @ 12:25 by Rell Huynh DO) Optic neuropathy Allergic rhinitis due to allergen Impingement of right ulnar nerve Bursitis of right shoulder Anxiety Bloating Right shoulder pain Alternating constipation and diarrhea Abdominal pain Chronic constipation Fall Rhinitis Acute vestibular neuronitis of left ear Hypocalcemia Vertigo Psoriasis Enbrel 08/2007-06/2017, Humira since 06/2017 Dr. oJse Positive Helicobacter pylori serology (08/11/15) Migraine headache (08/11/15) history of migraine headaches since 2009 Left-sided low back pain with left-sided sciatica (05/21/15) Gastroesophageal reflux disease (01/27/95) Chronic maxillary sinusitis (08/01/17) Migraine T2DM (type 2 diabetes mellitus) Surgical History Trigger finger, right middle finger Injection: 04/17/2021 S/P release: 12/30/2021 S/P shoulder surgery (~2012) Марина, to correct frozen shoulder partial hysterectomy (~2004) Dr Haro left meniscal tear (~2007) Dr Squires Cholecystectomy (10/20/17) laparoscopic Family History Grandmother , [place] at age 60. 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 What is your relationship status?: living with partner Panel score (0-1 are the most socially isolated patients): 1 What type of physical activity do you participate in: walking, bicycling and regular exercise Duration: other Details: sometimes spends more time with excercise i.e. biking Frequency: daily Seatbelt use: always Helmet use: No Working smoke detector in home: Yes Carbon monox detector in home: Yes Do you feel safe at home: Yes Do you feel safe in your relationship?: Yes
[2024-11-17] MEDS: Diph,Pertuss(Acell),Tet Vac/Pf 0.5 ML SYR IM (12:35)
[2024-11-17] MEDS: Cephalexin 500 MG CAP, 4 CAPS/BTL PO (12:35)
== END 2024-11-17 12:47 | disposition home or self-care (01) ==
PROVIDERS: Emergency Provider Student in an Organized Health Care Education/Training Program; PCP Nurse Practitioner
DX: S61.213A Laceration without foreign body of left middle finger without damage to nail, initial encounter (principal); S61.215A Laceration without foreign body of left ring finger without damage to nail, initial encounter; S61.217A Laceration without foreign body of left little finger without damage to nail, initial encounter; E11.9 Type 2 diabetes mellitus without complications; I10 Essential (primary) hypertension; E78.5 Hyperlipidemia, unspecified; Z79.82 Long term (current) use of aspirin; Z79.85 Long-term (current) use of injectable non-insulin antidiabetic drugs; Z79.84 Long term (current) use of oral hypoglycemic drugs; Z23 Encounter for immunization; W29.3XXA Contact with powered garden and outdoor hand tools and machinery, initial encounter; Y93.H2 Activity, gardening and landscaping; Y92.89 Other specified places as the place of occurrence of the external cause
CPT/HCPCS: 12004; 90471; 90715; 99283; J2003

== ENCOUNTER 2024-11-27 11:48 | Emergency (ER) | payer BC, SELFPAY ==
[2024-11-27 11:51] VITALS: BP 159/80; PULSE 85; RESP 18; TEMP 36.7; O2SAT 98
--- NOTE | 2024-11-27 11:59 | ED.GENADUL_ITS ---
Discharge Plan Disposition Patient Disposition: Home Discharge Details Clinical Impression: Encounter for removal of sutures Primary Care Provider: Jessy Hathaway ED Provider: Usman Murillo Home Meds and New Rx's Prescriptions: Continued ipratropium bromide 21 mcg (0.03 %) spray,non-aerosol 2 spray intranasal BID Qty: 30 12RF Rx Instructions: administer into each nostril (DME) BD Regular Bevel [place] 21 gauge x 1 1/2 needle 1 ea Miscellaneous AC & HS Qty: 400 3RF Rx Instructions: 5mm x 31G Dx E11.9 T2DM Test QID to maintain HbA1c less than 7% fluticasone propionate [Flonase Allergy Relief] 50 mcg/actuation spray,suspension 2 spray intranasal DAILY Qty: 16 12RF Rx Instructions: administer into each nostril Mounjaro 5 mg/0.5 mL pen injector 5 mg subcut QWEEK (DME) Dexcom G7 Manager Program Management Misc See Rx Instructions .Route Rx Instructions: As directed ibuprofen 600 mg tablet 600 mg PO TID PRN (Reason: pain) Qty: 270 8RF triamcinolone acetonide 0.5 % cream 1 applic topical DAILY Qty: 15 0RF Rx Instructions: Apply to legs and trunk lorazepam [Ativan] 0.5 mg tablet See Rx Instructions PO DAILY PRN (Reason: anxiety) Qty: 30 2RF Rx Instructions: 0.5 to 1mg PO daily PRN; Humira 40 MG/0.8 ML kit 40 mg SQ twice a month Jardiance 10 mg tablet 10 mg PO DAILY Qty: 90 3RF albuterol sulfate 90 mcg/actuation HFA aerosol inhaler 2 puff inhalation QID PRN (Reason: shortness of breath or wheezing) Qty: 8.5 12RF sumatriptan 5 mg/actuation spray,non-aerosol 5 mg NS ONCE PRN (Reason: migraine headache) Qty: 12 3RF Rx Instructions: 1 spray at onset of migraine, may repeat dose 2 hours later if not effective, to treat no more than 4 headaches per month blister packed meds .Route Rx Instructions: [facility] J blister packing meds pantoprazole 40 mg tablet,delayed release (DR/EC) See Rx Instructions .ROUTE .COMPLEX Qty: 90 3RF Dose Instruction: TAKE ONE TABLET BY MOUTH EVERY DAY Rx Instructions: TAKE ONE TABLET BY MOUTH EVERY DAY fexofenadine [Suni Allergy] 60 mg tablet 60 mg PO BID Qty: 180 3RF aspirin 81 mg tablet,delayed release (DR/EC) 81 mg PO DAILY Qty: 90 3RF Rx Instructions: [facility] [place] STARTED RH fenofibrate nanocrystallized [Tricor] 145 mg tablet 145 mg PO DAILY Qty: 90 3RF rosuvastatin 5 mg tablet See Rx Instructions .ROUTE .COMPLEX Qty: 36 3RF Dose Instruction: TAKE 1 TABLET BY MOUTH ON TUESDAY, TUESDAY & TUESDAY Rx Instructions: TAKE 1 TABLET BY MOUTH ON TUESDAY, TUESDAY & TUESDAY omega-3 acid ethyl esters [Lovaza] 1 gram capsule 2 cap PO BID Qty: 360 3RF metformin 1,000 mg tablet 1,000 mg PO DAILY Patient Comments: 07/31/24 ov at [facility] montelukast 10 mg tablet See Rx Instructions .ROUTE .COMPLEX Qty: 90 3RF Dose Instruction: TAKE 1 TABLET BY MOUTH EVERY EVENING Rx Instructions: TAKE 1 TABLET BY MOUTH EVERY EVENING Discharge Instructions Additional Instructions: You are seen in the emergency department for your stitches that were removed. As we discussed if you develop streaking signs of infection or any foul-smelling drainage please return to the emergency department. Otherwise please follow-up with your primary care provider. There is an outside chance that some of your stitches are still in your skin. They should come out on their own. If you are concerned about the appearance of your fingers please return to the emergency department. For your pain please take medications as follows: 1. Take acetaminophen (Tylenol), 1,000 mg (two 500 mg tabs) every 6 hours Discharge Data Discharge Date/Time-TO BE ENTERED AT DEPARTURE: 11/27/24 14:05 HPI General Date/Time Provider Initiated Documentation: 11/27/24 11:59 . HPI Narrative: MDM This is an overall very well-appearing normothermic and not tachycardic female who is 10 days status post laceration primary closure in the emergency department for suture removal. Patient had nonabsorbable sutures with glue. Given the scabs over the stitches and need for removal given placement 10 days prior I performed digital blocks. Patient tolerated suture removal well. She did have some mild oozing after her sutures were removed. She had finger tourniquets transiently applied and cyanoacrylate glue applied to stop bleeding. Bleeding was well-controlled. Patient had no fevers to suggest cellulitis. I did advise patient that given the extent of the scab and black sutures that it was possible that there may have been some residual suture material remaining in the patient's wound. I advised her to monitor her fingers for streaking signs of infection. I did not feel that it was advisable to further explore her wounds for any small residual pieces of suture as I did not want to cause her more trauma and more bleeding. She good range of motion in her fingers as not suspicious for ligamentous injuries. I advised her to return to the ED if she developed any recurrent bleeding anything signs of infection or any fevers. She had received a prophylactic course of cephalexin. She has primary care follow- up next week. She understood her return indications and was discharged with an empiric trial of expectant outpatient management. HPI The patient presents for evaluation of a laceration on her left hand. She sustained the injury approximately 10 days ago. She reports that the wound is still swollen and throbbing. Her primary care physician attempted to remove one of the stitches today but was unsuccessful due to excessive glue. The wound also exhibits dried blood. The physician expressed uncertainty about the presence of an infection and suggested that the stitches on the middle finger might need another week before removal. She has not experienced any fevers. She is right-handed. Exam General: Well-appearing in no acute distress speaking in complete sentences. Head: Normocephalic, atraumatic. Eye: Extraocular eye movements intact. No conjunctival injection. No scleral icterus. Ear, nose, mouth, throat: Grossly normal inspection. Normal voice, handling secretions normally. Neck: Trachea midline. Cardiovascular: Well-perfused distal extremities. Respiratory: Nonlabored respiration. Gastrointestinal: Nondistended abdomen. Musculoskeletal: Left hand with intact range of motion. On the palmar aspect of the left there are 3 lacerations that are hemostatic and healing well with sutures in place. Lacerations are on the palmar aspects of the left middle, left ring, and left little finger. Patient has full range of motion in these fingers across the MCP, PIP, and DIP joints. She has intact capillary refill in her left fingertips. 2+ left radial pulse. Skin: Normal for age and race, grossly normal temperature and turgor. No acute rash. Neurologic: Alert and appropriate, no apparent acute deficits. Psychiatric: Mood and manner are appropriate. Grooming and personal hygiene are appropriate. Related Data Home Medications ?Medication ?Instructions ?Recorded ?Confirmed adalimumab 40 mg/0.8 mL 40 mg SQ twice a month 08/3011/27/24 subcutaneous syringe kit (Humira) ipratropium bromide 21 mcg (0.03 2 spray intranasal BI D #30 mL 07/07/21 11/27/24 %) nasal spray needle (disp) 21 G 21 gauge x 1 #400 ea 01/12/2211/27 (BD Regular Bevel [place]) empagliflozin 10 mg tablet 10 mg PO DAILY #90 tabs 11/1811/27/24 (Jardiance) albuterol sulfate 90 mcg/actuation 2 puff inhalation Q ID PRN 06/29/22 11/27/24 aerosol inhaler shortness of breath or wheez ing #8.5 grams sumatriptan 5 mg/actuation nasal 5 mg NS ONCE PRN migr shaye headache 09/27/22 11/27/24 spray #12 ea blister packed meds .Route 05/18/23 11/27/24 fluticasone propionate 50 2 spray intranasal DAILY #16 grams 09/28/23 11/27/24 mcg/actuation nasal spray,suspension (Flonase Allergy Relief) pantoprazole 40 mg tablet,delayed See Rx Instructions .Route 01/24/24 11/27/24 release .COMPLEX #90 tabs blood-glucose,superintendent operations division,cont 04/02/24 11/27/24 (Dexcom G7 Manager Program Management) ibuprofen 600 mg tablet 600 mg PO TID PRN pain #270 tabs 04/02/24 11/27/24 tirzepatide 5 mg/0.5 mL 5 mg subcut QWEEK 04/02/24 0 11/27/24 subcutaneous pen injector (Gurinder) aspirin 81 mg tablet,delayed 81 mg PO DAILY #90 tabs 1 06/17/23 11/27/24 release fenofibrate nanocrystallized 145 145 mg PO DAILY #90 t ab-caps 04/17/24 11/27/24 mg tablet (Tricor) fexofenadine 60 mg tablet (Suni 60 mg PO BID #180 t abs 04/17/24 11/27/24 Allergy) rosuvastatin 5 mg tablet See Rx Instructions .Route 1 07/16/23 11/27/24 .COMPLEX #36 tabs omega-3 acid ethyl esters 1 gram 2 cap PO BID #360 cap s 07/11/24 11/27/24 capsule (Lovaza) metformin 1,000 mg tablet 1,000 mg PO DAILY 07/31/24 0 11/27/24 montelukast 10 mg tablet See Rx Instructions .Route 0 09/03/24 11/27/24 .COMPLEX #90 tabs triamcinolone acetonide 0.5 % 1 applic topical DAILY # 15 grams 10/04/24 11/27/24 topical cream lorazepam 0.5 mg tablet (Ativan) See Rx Instructions P O DAILY PRN 10/10/24 11/27/24 anxiety #30 tab-caps Previous Rx's ?Medication ?Instructions ?Recorded ipratropium bromide 21 mcg (0.03 2 spray intranasal BI D #30 mL 07/07/21 %) nasal spray needle (disp) 21 G 21 gauge x 1 #400 ea 01/12/22 1/2 (BD Regular Bevel [place]) empagliflozin 10 mg tablet 10 mg PO DAILY #90 tabs 11/18 (Jardiance) albuterol sulfate 90 mcg/actuation 2 puff inhalation Q ID PRN 06/29/22 aerosol inhaler shortness of breath or wheez ing #8.5 grams sumatriptan 5 mg/actuation nasal 5 mg NS ONCE PRN migr shaye headache 09/27/22 spray #12 ea fluticasone propionate 50 2 spray intranasal DAILY #16 grams 09/28/23 mcg/actuation nasal spray,suspension (Flonase Allergy Relief) pantoprazole 40 mg tablet,delayed See Rx Instructions .Route 01/24/24 release .COMPLEX #90 tabs ibuprofen 600 mg tablet 600 mg PO TID PRN pain #270 tabs 04/02/24 aspirin 81 mg tablet,delayed 81 mg PO DAILY #90 tabs 1 06/17/23 release fenofibrate nanocrystallized 145 145 mg PO DAILY #90 t ab-caps 04/17/24 mg tablet (Tricor) fexofenadine 60 mg tablet (Suni 60 mg PO BID #180 t abs 04/17/24 Allergy) rosuvastatin 5 mg tablet See Rx Instructions .Route 1 07/16/23 .COMPLEX #36 tabs omega-3 acid ethyl esters 1 gram 2 cap PO BID #360 cap s 07/11/24 capsule (Lovaza) montelukast 10 mg tablet See Rx Instructions .Route 0 09/03/24 .COMPLEX #90 tabs triamcinolone acetonide 0.5 % 1 applic topical DAILY # 15 grams 10/04/24 topical cream lorazepam 0.5 mg tablet (Ativan) See Rx Instructions P O DAILY PRN 10/10/24 anxiety #30 tab-caps Allergies Allergy/AdvReac Type Severity Reaction Status Date / Time adhesive Allergy rash Verified 11/27/24 11:54 metformin AdvReac Intermediate diarrhea Verified 11/27/24 11:54 ibuprofen (From Motrin) AdvReac GI Verified 11/27/24 11:54 Disturbances General Stated Complaint: SutureRem NASH: 4 Course Vital Signs Vital signs: Vital Signs Temperature 36.7 C 11/27/24 11:51 Pulse 85 11/27/24 11:51 Respiratory Rate 18 11/27/24 11:51 Blood Pressure 159/80 H 11/27/24 11:51 Pulse Oximetry 98 11/27/24 11:51 Temperature 36.7 C 11/27/24 11:51 Temperature Source Oral 11/27/24 11:51 Pulse 85 11/27/24 11:51 Respiratory Rate 18 11/27/24 11:51 Blood Pressure 159/80 H 11/27/24 11:51 Pulse Oximetry 98 11/27/24 11:51 Oxygen Delivery Method Room Air 11/27/24 11:51 Oxygen Flow Rate 0 11/27/24 11:51 Pain Level 5 11/27/24 11:51 PFSH All Active Problems (Updated 11/27/24 @ 13:24 by Usman Murillo MD) Encounter for removal of sutures (Acute) Laceration of right little finger (Acute) Laceration of right ring finger (Acute) Laceration of right middle finger (Acute) Laceration of left little finger (Acute) Laceration of left ring finger (Acute) Laceration of left middle finger (Acute) Erythromelalgia (Acute) 09/25/24 [facility] Raynaud disease (Acute) 09/25/24 [facility] Recurrent sinusitis (Acute) Pure hyperglyceridemia (Acute) 08/25/22 [facility] Overweight (Acute) 08/25/22 [facility] Positive self-administered antigen test for COVID-19 (Acute) 07/20/22. positive home test. sx onset 07/18/22 Essential hypertension (Acute 09/26/94) Hypertriglyceridemia (Acute 05/22/15) Type 2 diabetes mellitus with diabetic polyneuropathy, with long-term current use of insulin (Acute 12/15/15) 08/26/22 Endocrinology Encounter for screening colonoscopy (Acute) Diabetic neuropathy (Acute) Adhesive capsulitis of right shoulder (Chronic) Colon cancer screening (Acute) Environmental allergies (Acute) Non-proliferative diabetic retinopathy, both eyes (Acute) 05/13/20-[facility]--modest OD; severe OS Anxiety (Chronic) Nodule of finger (Acute) Wrist lump (Acute) Bilateral hand pain (Acute) Bilateral hand swelling (Acute) Allergic rhinitis due to pollen (Acute) De Quervain's tenosynovitis, left (Acute) Injected: 12/25/2020 Low HDL (under 40) (Acute) Peripheral neuropathy (Acute) Cataract (Chronic) Sciatica (Acute) Medical History (Updated 11/27/24 @ 13:24 by Usman Murillo MD) Optic neuropathy Allergic rhinitis due to allergen Impingement of right ulnar nerve Bursitis of right shoulder Anxiety Bloating Right shoulder pain Alternating constipation and diarrhea Abdominal pain Chronic constipation Fall Rhinitis Acute vestibular neuronitis of left ear Hypocalcemia Vertigo Psoriasis Enbrel 08/2007-06/2017, Humira since 06/2017 Dr. Jose Positive Helicobacter pylori serology (08/11/15) Migraine headache (08/11/15) history of migraine headaches since 2009 Left-sided low back pain with left-sided sciatica (05/21/15) Gastroesophageal reflux disease (01/27/95) Chronic maxillary sinusitis (08/01/17) Migraine T2DM (type 2 diabetes mellitus) Surgical History Trigger finger, right middle finger Injection: 04/17/2021 S/P release: 12/30/2021 S/P shoulder surgery (~2012) Марина, to correct frozen shoulder partial hysterectomy (~2004) Dr Haro left meniscal tear (~2007) Dr Squires Cholecystectomy (10/20/17) laparoscopic Family History Grandmother , [place] at age 60. 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 What is your relationship status?: living with partner Panel score (0-1 are the most socially isolated patients): 1 What type of physical activity do you participate in: walking, bicycling and regular exercise Duration: other Details: sometimes spends more time with excercise i.e. biking Frequency: daily Seatbelt use: always Helmet use: No Working smoke detector in home: Yes Carbon monox detector in home: Yes Do you feel safe at home: Yes Do you feel safe in your relationship?: Yes
[2024-11-27] MEDS: Acetaminophen 325 MG TAB 650 MG PO (12:19)
[2024-11-27] MEDS: Lidocaine 2% Multi-Dose 20 ML VIAL IJ (12:19)
[2024-11-27 13:58] VITALS: BP 125/61; PULSE 83; RESP 16; O2SAT 96
== END 2024-11-27 14:05 | disposition home or self-care (01) ==
PROVIDERS: Emergency Provider Emergency Medicine; PCP Nurse Practitioner
DX: S61.412D Laceration without foreign body of left hand, subsequent encounter (principal); X58.XXXD Exposure to other specified factors, subsequent encounter
CPT/HCPCS: J2003